=== PATIENT | female | born 1995 | race Caucasian/White ===

== ENCOUNTER 2017-11-02 17:56 | Inpatient (IN) | payer MEDICAID, SELFPAY ==
[2017-11-02 20:17] LABS: HCT 35.4 % (36.0-46.0); HGB 11.9 g/dL (12.0-15.5); Mean Corp. HGB Concentration 33.6 g/dL (32.0-36.0); Mean Corpuscular Hemoglobin 28.1 pg (27.0-33.0); Mean Corpuscular Volume 83.7 fL (80-95); Mean Platelet Volume 11.2 fL (8.0-11.0); Platelet Count 265 x1000/uL (130-400); RBC 4.23 m/cumm (4.00-5.20); RBC Distribution Width 13.5 % (11.7-14.6); White Blood Cell Count 9.88 k/cumm (4.4-10.8)
[2017-11-02] MEDS: Zolpidem 5 MG TAB 10 MG PO (20:57)
[2017-11-03] MEDS: Lactated Ringers 1,000 ML 125 ML IV ×2 (06:08→14:39)
[2017-11-03] MEDS: Lactated Ringers 500 ML IV (22:05)
[2017-11-03] MEDS: Bupivacaine 0.25% Pres-Free 30 ML VIAL (23:26)
[2017-11-04] MEDS: Lactated Ringers 1,000 ML 125 ML IV ×2 (02:35→05:53)
[2017-11-04] MEDS: Sodium Citrate 30 ML CUP PO (06:50)
[2017-11-04] MEDS: AZITHROMYCIN 500 MG in Normal Saline 250 ML 250 MG IVPB (07:10)
[2017-11-04 08:35] VITALS: BP 125/67; PULSE 70; RESP 15; TEMP 36.6; O2SAT 98
[2017-11-04 08:40] VITALS: BP 135/96; PULSE 70; RESP 15; TEMP 36.6; O2SAT 98
[2017-11-04 08:45] VITALS: BP 147/85; PULSE 66; RESP 23; TEMP 36.6; O2SAT 98
[2017-11-04 09:00] VITALS: BP 146/70; PULSE 68; RESP 18; TEMP 36.6; O2SAT 97
[2017-11-04 09:14] VITALS: BP 132/74; PULSE 68; RESP 18; TEMP 36.6; O2SAT 97
[2017-11-04] MEDS: Lactated Ringers 1,000 ML 120 ML IV (09:17)
--- NOTE | 2017-11-04 09:30 | W.PM.OP ---
Date of service: 11/04/17 Operative Note DATE OF PROCEDURE: 11/04/17 PRE-OP DIAGNOSIS: Arrest of Descent Category 2 FHR POST-OP DIAGNOSIS: same SURGEON: Naty Mosley ANESTHESIA: spinal ESTIMATED BLOOD LOSS: 500 PATHOLOGY: none sent COMPLICATIONS: None Patient was transported to: PACU Patient's condition: stable Indications: Arrest of dilation Category 2 FHR not responsive to corrective measures Findings: normal uterus, tubes and ovaries viable male infant 9# 8oz apgars 8,9 Procedure Description: Patient was laboring with family practice. This author was called due to concerns of arrest of descent and category 2 heart rate tracing with late decelerations not responding to corrective measures. It was decided and agreed that the patient should to proceed to primary section for arrested dilatation and category 2 tracing. Risks benefits and alternatives were thoroughly discussed with the patient the informed consent form was reviewed all questions were answered and consent was signed. She was then taken to the operating room where she received spinal anesthesia without difficulty. She was then placed on the operating table in the dorsal supine position with a left lateral tilt. A Corona catheter was placed. A greater than 30 seconds iodine vaginal prep was performed. She was then prepped and draped in the normal sterile sterile fashion. A formal timeout procedure was then performed with all surgical personnel present confirming the patient and procedure. After establishing adequate spinal anesthesia a Pfannenstiel incision was made approximately 2 cm above the symphysis pubis carried down to the underlying fascia. The fascia was nicked in the midline this was extended sharply bilaterally and the inferior aspect of the fascia was grasped bilaterally with Lauren clamps tented up and the rectus muscles dissected off sharply attention was then turned to the superior aspect and again in a similar fashion was grasped bilaterally with Lauren clamps the rectus muscles dissected off sharply the rectus muscles were in the midline the peritoneum was grasped with pickups and entered sharply this was extended superiorly and inferiorly with good visualization of the bladder. The bladder blade was then positioned and the vesicouterine peritoneum was grasped with a pickup tented up and entered sharply and the bladder flap was created both sharply and digitally. The bladder blade was repositioned and the lower uterine segment was transversely incised to the underlying uterine cavity. Clear amniotic fluid was noted and the infant's head was delivered atraumatically without nuchal cords shoulders and body followed with ease. The cord was clamped ?2 cut and the infant handed handed off to the waiting family practitioner Dr. Orantes. Cord blood was then obtained the placenta was manually expressed the uterus was exteriorized and cleared of all clots and debris. The bladder blade was then positioned the uterine cavity was cleared of all clots and debris. The apices and lower uterine incision was tagged with ring forceps and the incision was closed with 0 Vicryl in a running locked fashion. A second imbricating layer of 0 Vicryl was then placed to obtain hemostasis. The incision was inspected found to be hemostatic and the uterus was returned to the abdomen. The gutters were cleared of all clots and debris the uterine incision reinspected and noted to be hemostatic. All the laps were removed from the abdomen. Its suture was cut and the peritoneum was closed with 2-0 Vicryl in a running fashion. The muscle and subfascial layer was inspected and found to be hemostatic. The rectus muscle was reapproximated with 4 interrupted sutures of 0 Vicryl. The fascia was closed from each apices with 0 Vicryl and tied in the middle. The subcuticular layer was copiously irrigated there is no evidence of bleeding in the subcuticular layer was closed with 2 layers of 3 oh plain. And the skin was closed with 4-0 Monocryl on a Quincy needle incision was cleansed and a dressing applied sponge lap needle and small count were correct ?2 and the patient was taken to recovery room in stable condition
[2017-11-04] MEDS: Acetaminophen 325 MG TAB 650 MG PO ×3 (10:45→21:33)
[2017-11-04] MEDS: Ibuprofen 600 MG TAB PO ×3 (10:45→21:34)
[2017-11-04] MEDS: Normal Saline Flush 10 ML SYR IVP (10:46)
[2017-11-04] MEDS: Ondansetron 4 MG/2 ML VIAL IVP (10:46)
[2017-11-04] MEDS: oxyCODONE 5 mg/Acetaminophen 325 mg TAB PO (23:41)
[2017-11-05] MEDS: oxyCODONE 5 mg/Acetaminophen 325 mg TAB PO ×5 (04:22→20:05)
[2017-11-05] MEDS: Ibuprofen 600 MG TAB PO ×4 (04:22→22:16)
[2017-11-05 06:56] LABS: HCT 32.1 % (36.0-46.0); HGB 10.6 g/dL (12.0-15.5); Mean Corpuscular Hemoglobin 28.2 pg (27.0-33.0); Mean Corpuscular Volume 85.4 fL (80-95); Mean Platelet Volume 10.6 fL (8.0-11.0); Platelet Count 204 x1000/uL (130-400); RBC 3.76 m/cumm (4.00-5.20); RBC Distribution Width 13.5 % (11.7-14.6); White Blood Cell Count 11.06 k/cumm (4.4-10.8)
[2017-11-05] MEDS: Docusate Sodium 100 MG CAP PO ×2 (09:38→19:52)
[2017-11-06] MEDS: oxyCODONE 5 mg/Acetaminophen 325 mg TAB PO ×3 (02:15→11:43)
[2017-11-06] MEDS: Ibuprofen 600 MG TAB PO ×2 (04:23→11:43)
[2017-11-06] MEDS: Docusate Sodium 100 MG CAP PO (11:43)
== END 2017-11-06 12:20 | disposition home or self-care (01) | DRG 766 ==
PROVIDERS: Admitting Provider Family Medicine; PCP Family Medicine; Visit Provider Obstetrics & Gynecology
PROC: 10D00Z1 Extraction of Products of Conception, Low, Open Approach (ICD-10-PCS; CPT 59514; principal; 2017-11-04 06:10)
DX: O76 Abnormality in fetal heart rate and rhythm complicating labor and delivery (principal); O62.1 Secondary uterine inertia; Z37.0 Single live birth; O13.4 Gestational [pregnancy-induced] hypertension without significant proteinuria, complicating childbirth; O99.824 Streptococcus B carrier state complicating childbirth; Z3A.40 40 weeks gestation of pregnancy
CPT/HCPCS: 59514; 36415; 85027; 86850; 86900; 86901; 59200; J0456; J0690; J2405; J2540; J2590; J3010; J3490

== ENCOUNTER 2019-01-28 11:00 | Outpatient (REF) | payer MEDICAID, SELFPAY | END 2019-01-28 11:20 | LOC: LBN 11:00 | PROVIDERS: PCP Student in an Organized Health Care Education/Training Program; Visit Provider Advanced Practice Midwife | DX: N23 Unspecified renal colic (principal) | CPT/HCPCS: 87086 ==

== ENCOUNTER 2019-02-01 11:29 | Outpatient (CLI) | payer MEDICAID, SELFPAY ==
[2019-02-01 12:46] LABS: Abs Immature Grans 0.01 k/cumm (0.0-0.09); Absolute Basophil Count 0.02 k/cumm (0.0-0.2); Absolute Lymphocyte Count 2.45 k/cumm (1.2-3.4); Absolute Monocyte Count 0.63 k/cumm (0.11-0.7); Basophils % 0.2; Eosinophils % 1.9; HCT 36.9 % (36.0-46.0); HGB 12.3 g/dL (12.0-15.5); Immature Grans % 0.1; Lymphocytes % 23.3; Mean Corp. HGB Concentration 33.3 g/dL (32.0-36.0); Mean Corpuscular Hemoglobin 26.9 pg (27.0-33.0); Mean Corpuscular Volume 80.7 fL (80-95); Mean Platelet Volume 9.5 fL (8.0-11.0); Neutrophils % 68.5; Platelet Count 412 x1000/uL (130-400); RBC 4.57 m/cumm (4.00-5.20); RBC Distribution Width 13.1 % (11.7-14.6); White Blood Cell Count 10.51 k/cumm (4.4-10.8)
[2019-02-01 13:09] LABS: TSH (W/Ref FT4) 2.16 uIU/mL (0.36-3.74)
[2019-02-02 10:07] LABS: Varicella IgG Antibody Positive (See Note)
[2019-02-02 10:08] LABS: Rubella IgG Ab (UVM) Positive (See Note)
[2019-02-02 10:57] LABS: Hepatitis B Surface Ag Negative (Negative)
[2019-02-02 11:10] LABS: Hepatitis C Ab w Rflx HCV PCR Negative (Negative)
[2019-02-02 11:18] LABS: HIV-1/2 Ag & Ab Screen Negative (Negative)
[2019-02-02 11:55] LABS: Syphilis Total Ab w/Reflex Nonreactive (Nonreactive)
== END 2019-02-01 11:49 ==
PROVIDERS: PCP Student in an Organized Health Care Education/Training Program; Visit Provider Advanced Practice Midwife
DX: Z34.91 Encounter for supervision of normal pregnancy, unspecified, first trimester (principal); Z11.59 Encounter for screening for other viral diseases; Z11.4 Encounter for screening for human immunodeficiency virus [HIV]; Z01.84 Encounter for antibody response examination
CPT/HCPCS: 36415; 80307; 86787; 86803; 86850; 86900; 86901; 87340; 87389; 87491; 87591; 84443; 85025; 86762; 86780; 87086; 87480; 87510; 87660

== ENCOUNTER 2019-02-01 13:05 | Outpatient (REF) | payer MEDICAID, SELFPAY ==
[2019-02-01 14:38] LABS: *AMPHETAMINES SCREEN URINE Negative (Negative); *BARBITURATES SCREEN URINE Negative (Negative); *BENZODIAZEPINES SCREEN URINE Negative (Negative); Cannabinoids THC Negative (Negative); Cocaine Screen,Urine Negative (Negative); METHADONE URINE SCREEN Negative (Negative); OPIATES URINE SCREEN Negative (Negative)
[2019-02-01 14:43] LABS: Tricyclic Antidepressants Negative (Negative)
[2019-02-02 15:06] LABS: Chlamydia Result Negative (Negative); GC Result Negative (Negative)
[2019-02-04 11:34] LABS: Buprenorphine Negative; Norbuprenorphine Negative
== END 2019-02-01 13:25 ==
LOC: LBN 13:05
PROVIDERS: PCP Student in an Organized Health Care Education/Training Program; Visit Provider Advanced Practice Midwife
DX: Z34.91 Encounter for supervision of normal pregnancy, unspecified, first trimester (principal); Z11.3 Encounter for screening for infections with a predominantly sexual mode of transmission
CPT/HCPCS: 80307; 87491; 87591; 87480; 87510; 87660

== ENCOUNTER 2019-02-04 01:19 | Outpatient (CLI) | payer MEDICAID, SELFPAY ==
[2019-02-04 10:08] LABS: Glucose,1 Hr (Glucola) 111 mg/dL (80-140)
== END 2019-02-04 01:39 ==
PROVIDERS: PCP Student in an Organized Health Care Education/Training Program; Visit Provider Advanced Practice Midwife
DX: Z34.91 Encounter for supervision of normal pregnancy, unspecified, first trimester (principal)
CPT/HCPCS: 36415; 82950

== ENCOUNTER 2019-03-31 00:58 | Outpatient (CLI) | payer MEDICAID, SELFPAY ==
--- NOTE | 2019-03-31 09:42 | DI.US_ITS ---
EXAM: US OB 2-3 TRIMESTER CLINICAL HISTORY: [facility] Z34.90 SUPERVISION NORMAL TECHNIQUE: Ultrasound performed using standard protocol. COMPARISON: No exams were available for comparison FINDINGS: The exam is limited by patient body habitus. Fetus is in cephalic position. The placenta is poste rior. The biometric measurements correspond to 19 weeks 4 days. The face and placental cord i nsertion as well as right ventricular outflow tract were not seen. Patient is scheduled to return 06 April 2019 additional imaging. IMPRESSION: survey is within normal limits. Patient is scheduled to return 06 April 2019 additional im aging.
== END 2019-03-31 01:18 ==
PROVIDERS: PCP Student in an Organized Health Care Education/Training Program; Visit Provider Advanced Practice Midwife
DX: Z34.92 Encounter for supervision of normal pregnancy, unspecified, second trimester (principal); Z3A.19 19 weeks gestation of pregnancy
CPT/HCPCS: 76805

== ENCOUNTER 2019-04-06 01:51 | Outpatient (CLI) | payer MEDICAID, SELFPAY ==
--- NOTE | 2019-04-06 | DI.US_ITS ---
EXAM: US OB F/U FACIAL/LVOT/RVOT CLINICAL HISTORY: F/U NOSE, LIPS, CORD INSERT, OUTFLOW TRACKS TECHNIQUE: Ultrasound performed using standard protocol. COMPARISON: US OB 2-3 TRIMESTER W MOD from 03/31/2019 FINDINGS: There is a single living intrauterine gestation. Both of the cardiac outflow tracts were visualized and are unremarkable. The nose and lips are unremarkable. The cord insertion site is unremarkable. The placenta is posterior.
== END 2019-04-06 02:11 ==
PROVIDERS: PCP Student in an Organized Health Care Education/Training Program; Visit Provider Advanced Practice Midwife
DX: Z34.92 Encounter for supervision of normal pregnancy, unspecified, second trimester (principal); Z36.2 Encounter for other antenatal screening follow-up
CPT/HCPCS: 76815

== ENCOUNTER 2019-06-03 01:42 | Outpatient (CLI) | payer MEDICAID, SELFPAY ==
[2019-06-03 09:53] LABS: Glucose,1 Hr (Glucola) 143 mg/dL (80-140)
[2019-06-03 10:03] LABS: Mean Corp. HGB Concentration 33.3 g/dL (32.0-36.0); Mean Corpuscular Hemoglobin 27.4 pg (27.0-33.0); Mean Corpuscular Volume 82.2 fL (80-95); Mean Platelet Volume 9.7 fL (8.0-11.0); Platelet Count 337 x1000/uL (130-400); RBC 4.38 m/cumm (4.00-5.20); RBC Distribution Width 13.9 % (11.7-14.6); White Blood Cell Count 8.19 k/cumm (4.4-10.8)
== END 2019-06-03 02:02 ==
LOC: LBO 09:23 → LBN 06-04 07:43 → LBO 06-04 07:44
PROVIDERS: Advanced Practice Midwife; PCP Student in an Organized Health Care Education/Training Program; Visit Provider Advanced Practice Midwife
DX: Z34.92 Encounter for supervision of normal pregnancy, unspecified, second trimester (principal)
CPT/HCPCS: 36415; 82950; 85027

== ENCOUNTER 2019-06-04 07:16 | Outpatient (CLI) | payer MEDICAID, SELFPAY ==
[2019-06-04 09:14] LABS: Glucose 1 Hour 168 mg/dL
[2019-06-04 11:22] LABS: Glucose 3 Hour 113 mg/dL
== END 2019-06-04 07:36 ==
PROVIDERS: PCP Student in an Organized Health Care Education/Training Program; Visit Provider Advanced Practice Midwife
DX: Z34.92 Encounter for supervision of normal pregnancy, unspecified, second trimester (principal)
CPT/HCPCS: 82951

== ENCOUNTER 2019-07-30 02:07 | Outpatient (CLI) | payer MEDICAID, SELFPAY ==
--- NOTE | 2019-07-30 07:00 | DI.US_ITS ---
EXAM: US OB JAMIN WEIGHT CLINICAL HISTORY: size greater than dates,O26.843. TECHNIQUE: Transabdominal obstetrical ultrasound performed. COMPARISON: US US OB F/U FACIAL/LVOT/RVOT from 04/06/2019 FINDINGS: There is a single living intrauterine gestation in the cephalic presentation. The estimated gestatio nal age is 38 weeks. heart rate is 150 beats per minute. A complete anatomic evaluation was n ot performed at this exam. Amniotic fluid index is 15.6 cm. Visually, the amniotic fluid appears wi thin normal limits. The placenta is posterior. IMPRESSION: 1. Single live intrauterine gestation as above. DATA REPOSITORY:
== END 2019-07-30 02:27 ==
PROVIDERS: PCP Student in an Organized Health Care Education/Training Program; Visit Provider Advanced Practice Midwife
DX: O26.843 Uterine size-date discrepancy, third trimester (principal); Z3A.38 38 weeks gestation of pregnancy
CPT/HCPCS: 76816

== ENCOUNTER 2019-07-30 12:47 | Outpatient (REF) | payer MEDICAID, SELFPAY ==
[2019-07-30 15:58] LABS: Tricyclic Antidepressants Negative (Negative)
[2019-07-30 16:04] LABS: *AMPHETAMINES SCREEN URINE Negative (Negative); *BARBITURATES SCREEN URINE Negative (Negative); *BENZODIAZEPINES SCREEN URINE Negative (Negative); Cannabinoids THC Negative (Negative); Cocaine Screen,Urine Negative (Negative); METHADONE URINE SCREEN Negative (Negative); OPIATES URINE SCREEN Negative (Negative)
[2019-08-05 08:17] LABS: Buprenorphine Negative
--- NOTE | 2019-08-10 10:01 | ANES_ITS ---
Date of service: 08/10/19 Time of Service: 10:01 Anesthesia Note Report Anesthesia Note: Saw Sherie at the request of OB to assess TOLAC candidacy. From an anesthesia perspective, we were involved in her first c- section in 2018 with no concerns under spinal anesthesia. She shared that she does have mild spinal stenosis and would like to TOLAC if possible. IV Access looks reasonable and she states this has generally not been an issue. Her back as well as prior spinal makes her a reasonable candidate for repeat section if needed by either spinal or GETA.
== END 2019-07-30 13:07 ==
LOC: LBN 12:47
PROVIDERS: PCP Student in an Organized Health Care Education/Training Program; Visit Provider Advanced Practice Midwife
DX: Z34.93 Encounter for supervision of normal pregnancy, unspecified, third trimester (principal); Z36.85 Encounter for antenatal screening for Streptococcus B
CPT/HCPCS: 80307; 87081

== ENCOUNTER 2019-08-17 21:20 | Inpatient (IN) | payer MEDICAID, SELFPAY ==
[2019-08-17 22:31] LABS: ROM Plus Positive
[2019-08-17] MEDS: Terbutaline 1 MG/ML VIAL ×2 (23:09→23:42)
[2019-08-17 23:10] LABS: HCT 36.6 % (36.0-46.0); Mean Corp. HGB Concentration 32.8 g/dL (32.0-36.0); Mean Corpuscular Volume 82.2 fL (80-95); Mean Platelet Volume 10.9 fL (8.0-11.0); Platelet Count 293 x1000/uL (130-400); RBC 4.45 m/cumm (4.00-5.20); White Blood Cell Count 10.57 k/cumm (4.4-10.8)
[2019-08-17] MEDS: AZITHROMYCIN 500 MG in Normal Saline 250 ML 250 MG IVPB (23:10)
[2019-08-17] MEDS: Sodium Citrate 30 ML CUP (23:10)
--- NOTE | 2019-08-17 23:16 | W.PM.PROGNOT ---
Date of Service Date of service: 08/17/19 Time of Service: 23:16 Assessment and Plan Assessment and plan (1) : Status: Acute (2) Previous section: Status: Chronic (3) macrosomia: Status: Acute (4) Morbid obesity: Status: Acute Assessment and plan: I had a lengthy discussion with the patient regarding her election to attempt a trial of labor. Based on the constellation of factors including body habitus, macrosomia and reason for prior section she is a poor candidate for a . In addition, non-engagement and inability to adequately perform monitoring during labor also make a trial of labor problematic. My recommendation is to proceed with repeat section. The patient acknowledged understanding and elects to proceed. Risks of surgery including hemorrhage, infection and injury to other organs such as bowel and bladder were reviewed with the patient. All questions were answered to the patient's satisfaction and consent for surgery was obtained. Subjective Subjective Interval history since last seen: I presented to the bedside to evaluate the patient at the request of Meryl Mims CNM. The patient presented with SROM and early labor. She has a history of a prior section for FTP @ 7 cm with a 9 lbs fetus. This is complicated by morbid obesity, macrosomia and prior section. On Meryl Hernandez evaluation she was unable to palpate a presenting part in the pelvis and cervix was 2 cm in dilatation. Per her report she did perform an ultrasound for presentation and felt that the fetus was in occiput posterior position. monitoring has been difficult due to maternal body habitus and because presenting part was not in the pelvis, there is no ability to place a scalp electrode. Objective Objective Clinical Data: Laboratory Results Membranes Rupture Positive 08/17/19 22:20
[2019-08-18] MEDS: ceFAZolin 3,000 MG in Normal Saline 100 ML 200 MG IVPB (00:37)
[2019-08-18] MEDS: Bupivacaine 0.25% Pres-Free 30 ML VIAL (01:42)
[2019-08-18 02:05] VITALS: BP 136/76; PULSE 97; O2SAT 100
[2019-08-18 02:10] VITALS: BP 111/69; PULSE 103; O2SAT 100
[2019-08-18 02:15] VITALS: BP 113/77; PULSE 99; O2SAT 100
[2019-08-18] MEDS: HYDROmorphone 2 MG/ML VIAL IVP ×2 (03:10→04:32)
[2019-08-18] MEDS: Normal Saline Flush 10 ML SYR IVP (03:15)
[2019-08-18] MEDS: oxyCODONE 5 mg/Acetaminophen 325 mg TAB PO ×4 (07:30→20:33)
[2019-08-18 07:40] LABS: HCT 29.1 % (36.0-46.0); HGB 9.3 g/dL (12.0-15.5); Mean Corpuscular Hemoglobin 26.9 pg (27.0-33.0); Mean Corpuscular Volume 84.1 fL (80-95); Platelet Count 277 x1000/uL (130-400); RBC 3.46 m/cumm (4.00-5.20); RBC Distribution Width 13.8 % (11.7-14.6)
--- NOTE | 2019-08-18 10:20 | ROE_ITS ---
Date of service: 08/18/19 Time of Service: 10:21 Operative Note Operative Note DATE OF PROCEDURE: 08/18/19 PRE-OP DIAGNOSIS: 39 weeks. Active labor with SROM. Prior section. macrosomia. Unengaged vertex. POST-OP DIAGNOSIS: same PROCEDURE: Repeat low transverse section SURGEON: Rajiv Merino ASSISTING SURGEON: Héctor Steve ACCOUNT LIAISON: Meryl Mims ANESTHESIA: GETA and spinal ESTIMATED BLOOD LOSS: 1,200 PATHOLOGY: none sent COMPLICATIONS: None Patient was transported to: floor Patient's condition: stable Findings: 1. Delivered LBM 9 lbs 10 oz with 8,9 Procedure Description: The patient was taken to the operating room and an attempted spinal anesthesia was made but a block could not be achieved. Anesthesia was converted to a general endotracheal. The patient had been prepped and draped your sterile manner and Corona catheter had been placed in the bladder prior to the administration of anesthesia. A Pfannenstiel incision was made with a #10 scalpel. Sharp dissection was carried down to the underlying layer of fascia. The fascia was incised in the midline with a scalpel and the incision was carried laterally in either direction with blunt digital dissection. The superior and inferior aspects of the fascial incision were divided off the rectus muscles using blunt and sharp dissection. The rectus muscles were divided along the linea alba and the peritoneum was entered bluntly with digital dissection. The incision was extended via stretch. The Matthew retractor was placed with good visualization of the lower uterine segment. There were bladder adhesions fairly high on the uterus were taken down with blunt and sharp dissection. The bladder flap was then developed digitally. The lower uterine segment was incised and transfer made with a scalpel and the infant was found in cephalic presentation. was delivered atraumatically. Mouth and nose were suctioned. The cord was clamped and cut and the was handed off to the awaiting color room attendant. The placenta was manually extracted and the uterus was cleared of all clots and debris. The hysterotomy was closed with a running locked stitch of #1 chromic. A second imbricating layer of #1 chromic in a Lambert stitch was used to complete the repair. 2 tlnute-fr-elhmd sutures of #1 chromic were used along the right side to obtain hemostasis. The bladder flap was reapproximated with a running stitch of 3-0 Vicryl. The gutters were cleared of clots and debris. The peritoneum was closed with a running stitch of 2-0 Vicryl. Subfascial space was thoroughly inspected and limited use of the Bovie cautery was used to obtain hemostasis. The fascia was closed with a running stitch of 0 Vicryl. The subcutaneous tissues were closed with 2 layers of 3-0 Vicryl. Running subcuticular stitch of 4-0 Monocryl and Dermabond was applied. The procedure wa s concluded at this point. Sponge, lap and needle counts were correct at the conclusion of the procedure. The patient tolerated the procedure well and was transferred to the floor in stable condition.
[2019-08-18] MEDS: Ibuprofen 600 MG TAB PO (12:48)
[2019-08-18 12:56] LABS: COVID-19 RT-PCR UVMMC Result Negative (Negative)
--- NOTE | 2019-08-18 14:31 | W.PM.PROGNOT ---
Date of Service Date of service: 08/18/19 Time of Service: 14:31 Assessment and Plan Assessment and plan (1) S/P section: Status: Acute Assessment and plan: POD1 s/p RLTCS. Continue routine postop care. Encourage ambulation. Subjective Subjective Interval history since last seen: Doing well. Pain well controlled. Ambulatory Tolerating regular diet Minimal lochia. Objective Objective Clinical Data: Abnormal lab results 08/17/19 08/18/19 Range/Units 23:00 07:00 WBC 14.40 H D (4.4-10.8) k/cumm RBC 3.46 L (4.00-5.20) m/cumm Hgb 9.3 L D (12.0-15.5) g/dL Hct 29.1 L D (36.0-46.0) % MCH 26.9 L (27.0-33.0) pg Crossmatch See Detail Vital Signs Pulse 99 H 08/18/19 02:15 Blood Pressure 113/77 08/18/19 02:15 Pulse Oximetry 100 08/18/19 02:15 Oxygen Delivery Method Room Air 08/18/19 02:15 Oxygen Flow Rate 10 08/18/19 02:10 Pain Level 4 08/18/19 12:48 Intake & Output 08/17/19 08/18/19 08/18/19 23:59 11:59 23:59 Intake Total 100 / 350 250 / 350 Output Total 1300 / 1300 Balance -1200 / -950 250 / -950 Intake: IV 100 / 350 250 / 350 Output: Urine 100 / 100 Estimated Blood Loss 1200 / 1200 Other: Urine Color Yellow Urine Appearance Clear Emesis Description None Laboratory Results WBC 14.40 k/cumm (4.4-10.8) H D 08/18/19 07:00 RBC 3.46 m/cumm (4.00-5.20) L 08/18/19 07:00 Hgb 9.3 g/dL (12.0-15.5) L D 08/18/19 07:00 Hct 29.1 % (36.0-46.0) L D 08/18/19 07:00 MCV 84.1 fL (80-95) 08/18/19 07:00 MCH 26.9 pg (27.0-33.0) L 08/18/19 07:00 MCHC 32.0 g/dL (32.0-36.0) 08/18/19 07:00 RDW 13.8 % (11.7-14.6) 08/18/19 07:00 Plt Count 277 x1000/uL (130-400) 08/18/19 07:00 MPV 11.0 fL (8.0-11.0) 08/18/19 07:00 Membranes Rupture Positive 08/17/19 22:20 COVID-19 PCR Negative (Negative) 08/17/19 22:33 Nasopharyn COVID-19 PCR Not Applicable 08/17/19 22:33 Ref Test Perform Site [facility] lab 08/17/19 22:33 Patient ABO/Rh O Positive 08/17/19 23:00 Antibody Screen Negative 08/17/19 23:00 Crossmatch See Detail 08/17/19 23:00
[2019-08-19] MEDS: oxyCODONE 5 mg/Acetaminophen 325 mg TAB PO ×5 (03:07→20:20)
[2019-08-19] MEDS: Ibuprofen 600 MG TAB PO ×2 (12:17→18:08)
[2019-08-20] MEDS: Ibuprofen 600 MG TAB PO ×2 (00:18→09:07)
[2019-08-20] MEDS: oxyCODONE 5 mg/Acetaminophen 325 mg TAB PO ×4 (00:20→13:07)
--- NOTE | 2019-08-20 08:59 | W.PM.DS.N ---
Date of service: 08/20/19 Time of Service: 08:59 DS: Diagnosis Discharge Diagnosis (1) S/P section: Status: Acute Discharge Plan Disposition Patient Disposition: HOME Condition: Good Discharge Details Reason For Visit: SROM TERM LABOR Admit Date/Time: 08/17/19 21:20 Admit Provider: Meryl Mims Attending Provider: Meryl Mims Primary Care Provider: Rhoda Hidalgo Hospital Course Hospital Course: Patient is a 24-year-old G2 now P2 female who presented at 39 weeks EGA with SROM and early labor planning on a trial of labor. She had a history of a prior section for FTP @ 7 cm with a 9 lbs fetus. During this she was counseled that she was a candidate for a trial of labor but because of the patient's morbid obesity, probable macrosomia, and indications for prior delivery she was given a less than 50% chance of a successful trial of labor. On presentation CNM was unable to palpate a presenting part in the pelvis, and cervix was 2 cm in dilatation. A bedside ultrasound confirmed that the fetus was vertex in the occiput posterior position. The patient was counseled regarding options for trial of labor versus a repeat delivery, which she accepted. She underwent a repeat low transverse delivery without complications on 08/18/2019. Viable male infant named Ezio weighing 9 pounds 10 ounces. She and were discharged home on day 2 successfully breast-feeding. Pt was taking ibuprofen and Percocet for pain. Home Meds and New Rx's Prescriptions: No Action Vitamin 27 mg iron- 800 mcg tablet 1 tab PO DAILY RF: 0 ascorbate calcium (vitamin C) 500 mg tablet 500 mg PO DAILY RF: 0 oxycodone-acetaminophen [Endocet] 5-325 mg tablet 1 tab PO Q6H MDD 4 PRN (Reason: pain) Qty: 30 RF: 0 ibuprofen 600 mg tablet 600 mg PO Q6H PRN (Reason: pain) Qty: 60 RF: 1 norethindrone (contraceptive) [Parris] 0.35 mg tablet 0.35 mg PO DAILY Qty: 84 RF: 11 fluconazole [Diflucan] 150 mg tablet 150 mg PO DAILY Qty: 1 RF: 1 Discharge Instructions Additional Instructions: You have a prescription for Percocet 5/325 take 1 tablet every 6 hours as needed for pain for a maximum of 4 tablets/day. In addition to the Percocet there is a prescription waiting for you at your pharmacy for ibuprofen 600 mg every 6 hours as needed for pain. You may take that along with the Percocet. Careful to avoid constipation while taking the Percocet. Call the office on Friday to make an appointment with Dr. Merino in follow-up for 08/26/2019. Stand Alone Forms: BC Instructions, BC Discharge Instruc Activity:: No lifting over 10 pounds, no driving Equipment/Supplies:: No Equipment Needed Diet:: As Tolerated Discharge Orders Discharge Orders: Discharge Order (Routine); Ordered 08/20/19 Ordered By: Amanda Kumar Discharge Data Discharge Date/Time-TO BE ENTERED AT DEPARTURE: 08/20/19 14:05 DS: Summary Status at Discharge Functional status at discharge: independent ambulation Overall status at discharge: patient is progressing back to baseline Mental Status: mental status grossly normal Speech and Movement: speech and movement normal and mute Mood: congruent mood Affect: normal affect Exam Psych Mental Status: mental status grossly normal Speech and Movement: speech and movement normal and mute Mood: congruent mood Affect: normal affect DS: Data Vitals/I&O Vitals and I&O: Vital Signs Pulse 99 H 08/18/19 02:15 Blood Pressure 113/77 08/18/19 02:15 Pulse Oximetry 100 08/18/19 02:15 Oxygen Delivery Method Room Air 08/18/19 02:15 Oxygen Flow Rate 10 08/18/19 02:10 Pain Level 3 08/20/19 05:23 PFS Medical History (Updated 09/28/19 @ 09:17 by Paloma Short CNM) Anxiety (Chronic) Gluten intolerance (Acute) Lumbago with sciatica (Acute) Bilateral Other intervertebral disc displacement, lumbar region (Acute) Ctl disc protrusion @ L5, S1 per MRI Sep 2017 ([facility]). Pain/numbness. Positive test (Acute) (Acute) Surgical History (Updated 08/20/19 @ 09:06 by Amanda Kumar MD) Previous section (Chronic) 11/04/2017. I OL for back pain at 40W EGA. LTCS arrest of dilation. M. 2gob0oc. Pradeep 08/18/2019 attempted .39 weeks. Active labor with SROM. Prior section. macrosomia. Unengaged vertex. M. 9lbs 10oz. Ezio Family History Mother No problems noted. Father Temporal lobe epilepsy Possible Sister Celiac disease Social History (Updated 02/01/19 @ 10:31 by Penny Wiley CNM) Smoking/Tobacco Use Status: Former Tobacco Use Quit Date: 02/17/15 Tobacco: How many years used: 1 Alcohol Intake: former Details: stopped w/ knowledge of . Drug use: Never Substance use type: does not use Details: No IV Drug Use Adopted: No Caregiver/Support person: Yes (Employed As.) Foster care: No Household members: spouse and children Number of Children: 1 Do you need help understanding health information?: Rarely current occupation: [employer] Worker Sexually active: Yes Do you think of yourself as: straight/heterosexual Current gender identity: female What is your relationship status?: Panel score (0-1 are the most socially isolated patients): 1 What type of physical activity do you participate in: walking and other Details: yoga daily Duration: 15-30 minutes/day Frequency: daily Seatbelt use: always Do you feel safe at home: Yes Do you feel safe in your relationship?: Yes History History 2 Para 2 Hx # Term Pregnancies 2 Multiple births 0 Hx # Pregnancies 0 Ectopic pregnancies 0 AB induced 0 Hx Number of Living Children 2 AB spontaneous 0 Past Pregnancies Del. Date GA/Weeks # Outcome Route Wgt Sex Labor Lgth Anesthesia Location Prov Complic Unknown 11/04/17 40 No Successful 9 lb 7 oz Male [facility] 08/18/19 38 No Successful 9 lb 10 oz Male Opal Kiser Delivery Date: Spontaneous ROM; Failed ; repeat Maritza Campos Delivery Date: 11/04/17 IOL for back pain, herniated disc. Corona induction, Pitocin, 3 day induction. for FTP. Dilated to 7- 8 cms, FHR decellerations. Paloma López Delivery Date: 08/18/19 No notes to display
[2019-08-20] MEDS: Bisacodyl 5 MG TABEC PO (09:22)
== END 2019-08-20 14:05 | disposition home or self-care (01) | DRG 788 ==
PROVIDERS: Obstetrics & Gynecology; Admitting Provider Advanced Practice Midwife; PCP Student in an Organized Health Care Education/Training Program; Visit Provider Advanced Practice Midwife
PROC: (CPT 59514; principal; 2019-08-17 23:50)
DX: O64.8XX0 Obstructed labor due to other malposition and malpresentation, not applicable or unspecified (principal); O66.41 Failed attempted vaginal birth after previous cesarean delivery; Z37.0 Single live birth; O66.2 Obstructed labor due to unusually large fetus; O34.211 Maternal care for low transverse scar from previous cesarean delivery; T88.59XA Other complications of anesthesia, initial encounter; O99.214 Obesity complicating childbirth; Z3A.39 39 weeks gestation of pregnancy; E66.01 Morbid (severe) obesity due to excess calories; O42.02 Full-term premature rupture of membranes, onset of labor within 24 hours of rupture; Z03.818 Encounter for observation for suspected exposure to other biological agents ruled out
CPT/HCPCS: 59514; 36415; 84112; 85027; 86850; 86900; 86901; 86920; 99233; NC; U0003; J0456; J0690; J1885; J2001; J2405; J2704; J3010

== ENCOUNTER 2019-09-28 11:42 | Outpatient (REF) | payer MEDICAID, SELFPAY ==
--- NOTE | 2019-09-28 09:00 | PAPFT_PTH ---
PATIENT: Sherie Larios LOC: [facility] U#:[id number] AGE/SX: 24/F ROOM: RE09/28/[address]: Paloma Short : 1995 BED: DIS: 09/28/2019 SPEC #: [id number] RECD: 09/28/19 13:01 STATUS: BRIAN REJoey #: [id number] BOBBI: 09/28/19 09:[address]: Paloma Short [facility] Cytology RECD BY: Marlys Zuniga ENTERED: 09/28/19 13:02 SP TYPE: PAPFT OTHR DR: Rhoda Hidalgo DO Tissues: 1 - CX/ENDOCX FOR PAP SMEARS Procedures: PAP THIN PREP/[facility] Screening Comments: [id number]
== END 2019-09-28 12:02 ==
LOC: LBN 11:42
PROVIDERS: PCP Student in an Organized Health Care Education/Training Program; Visit Provider Advanced Practice Midwife
DX: Z12.4 Encounter for screening for malignant neoplasm of cervix (principal)
CPT/HCPCS: 88142

== ENCOUNTER 2019-12-03 11:49 | Outpatient (REF) | payer MEDICAID, SELFPAY | END 2019-12-03 12:09 | LOC: LBN 11:49 | PROVIDERS: PCP Student in an Organized Health Care Education/Training Program; Visit Provider Advanced Practice Midwife | DX: N89.8 Other specified noninflammatory disorders of vagina (principal) | CPT/HCPCS: 87480; 87510; 87660 ==

== ENCOUNTER 2020-07-18 21:16 | Emergency (ER) | payer MEDICAID, SELFPAY ==
[2020-07-18 21:19] VITALS: BP 135/79; PULSE 110; RESP 20; TEMP 35.5; O2SAT 100
--- NOTE | 2020-07-18 21:41 | ED.GENADUL_ITS ---
Discharge Plan Disposition Patient Disposition: HOME Condition: Stable Discharge Details Clinical Impression: Vaginal bleeding Primary Care Provider: Rhoda Hidalgo ED Provider: Ezio Maurer Home Meds and New Rx's Prescriptions: Continued albuterol sulfate 90 mcg/actuation aerosol powdr breath activated 1 - 2 inh inhalation Q4H PRN (Reason: shortness of breath or wheezing) Qty: 1 RF: 0 Digestive Probiotic 3 billion cell capsule PO RF: 0 polyethylene glycol 3350 [Miralax] 17 gram/dose powder 17 g PO HS RF: 0 norethindrone (contraceptive) [Parris] 0.35 mg tablet 0.35 mg PO DAILY Qty: 84 RF: 1 Discharge Instructions Additional Instructions: I discussed your case with Dr. Kumar this evening. She is planning to see you in the office tomorrow morning and stated that office staff will phone you. The office number is [phone]. Dr. Kumar asked that you double your Alida oral contraceptive taking additional dose this evening and 2 doses tomorrow morning. She also asked that you take ibuprofen 600 mg every 6 hours for its antiprostaglandin effect which can slow menstrual bleeding. Return to the ER for any acute concerns in the interim. Medical Decision Making 25-year-old female presents from home with persistent menses since the end of May. She has an IUD, has been seen in [facility] and recently placed on oral contraceptive. States that she has had increasing vaginal bleeding over the past 5 days up to 7 super tampons and approximately 1 cup menstrual cup bleed captured. She arrives here with triage heart rate of 110, improved by the time of my exam as she is lying in the gurney. Her lower abdomen is slightly tender without rebound or guarding. On pelvic exam there is pooling of blood in the vaginal vault refills with swabbing. No mass or focal tenderness appreciated. Patient's white blood cell count is 12, hematocrit 38, platelets 413. Chemistries reassuring. Screening XR obtained Discussed with Dr. Kumar. Patient is stable, will benefit from urgent evaluation tomorrow in [facility]. We will have her double her current oral contraceptive and she may take ibuprofen 600 mg every 6 hours for its antiprostaglandin effect. HPI General Mode of arrival: ambulatory . Date/Time Provider Initiated Documentation: 07/18/20 21:21 . Limitations to Documentation: no limitations . Information obtained by: patient . History of Present Illness 25 year old F presents to the emergency department with the chief complaint of Persistent large volume vaginal bleeding, described as moderate, Quality is described as dull, and is localized to the abdomen and pelvis. Patient reports no radiation. Patient started experiencing this day(s) and it has been intermittent. No relieving factors improve symptom(s), Other factors that worsen symptoms (Worse with mild exertion or lifting child) . Patient notes weakness; denies chest pain, nausea/vomiting, shortness of breath and syncope. Patient did receive the following treatments prior to arrival, other (Taking oral contraceptive.) Related Data Home Medications Medication Instructions Recorded Confirmed L.acidophilus,gasseri,rhamnosus-B.bifidum,long cap PO 12/03/19 04/19/20 3 billion cell capsule albuterol sulfate 90 mcg/actuation 1 - 2 inh INHALATION Q4H PRN #1 ea 03/06/20 07/18/20 breath activated powder inhaler polyethylene glycol 3350 17 17 g PO HS g 05/17/20 gram/dose oral powder norethindrone (contraceptive) 0.35 0.35 mg PO DAILY #84 tab 07/03/20 mg tablet Previous Rx's Medication Instructions Recorded albuterol sulfate 90 mcg/actuation 1 - 2 inh INHALATION Q4H PRN #1 ea 03/06/20 breath activated powder inhaler norethindrone (contraceptive) 0.35 0.35 mg PO DAILY #84 tab 07/03/20 mg tablet Allergies Allergy/AdvReac Type Severity Reaction Status Date / Time procaine [From Novocain] Allergy Severe Verified 07/18/20 21:23 hydrocortisone Allergy Intermediate hives Verified 07/18/20 21:23 nifedipine Allergy Swelling Verified 07/18/20 21:23 zonisamide [From Zonegran] AdvReac rash Verified 07/18/20 21:23 General Stated Complaint: [facility] JUVENCIO: 3 Review of Systems Narrative: 6 systems reviewed and otherwise negative. No syncope. Feels weak and lightheaded. PFSH Medical History Anxiety Food sensitivity with gastrointestinal symptoms Mo has eosino esophagitis. Fragrance hypersensitivity Asthmatic or allergic reaction Gluten intolerance Lumbago with sciatica Bilateral Other intervertebral disc displacement, lumbar region Ctl disc protrusion @ L5, S1 per MRI Sep 2017 ([facility]). Pain/numbness. Positive test Presence of IUD Surgical History (Updated 08/20/19 @ 09:06 by Amanda Kumar MD) Previous section 11/04/2017. I OL for back pain at 40W EGA. LTCS arrest of dilation. M. [id number]. Pradeep 08/18/2019 attempted .39 weeks. Active labor with SROM. Prior section. macrosomia. Unengaged vertex. M. 9lbs 10oz. Ezio Family History Mother No problems noted. Father Temporal lobe epilepsy Possible Sister Celiac disease Social History Smoking/Tobacco Use Status: Former Tobacco Use Quit Date: 02/17/15 Tobacco: How many years used: 1 Smoking risk assessment performed?: Yes Alcohol Intake: former Details: stopped w/ knowledge of . Drug use: Never Substance use type: does not use Details: No IV Drug Use Adopted: No Caregiver/Support person: Yes (Employed As.) Foster care: No Household members: spouse and children Number of Children: 1 Do you need help understanding health information?: Rarely current occupation: [employer] Work[employer] Sexually active: Yes Do you think of yourself as: straight/heterosexual Current gender identity: female What is your relationship status?: Panel score (0-1 are the most socially isolated patients): 1 What type of physical activity do you participate in: walking and other Details: yoga daily Duration: 15-30 minutes/day Frequency: daily Seatbelt use: always Do you feel safe at home: Yes Do you feel safe in your relationship?: Yes History History 2 Para 2 Hx # Term Pregnancies 2 Multiple births 0 Hx # Pregnancies 0 Ectopic pregnancies 0 AB induced 0 Hx Number of Living Children 2 AB spontaneous 0 Past Pregnancies Del. Date GA/Weeks # Outcome Route Wgt Sex Labor Lgth Anesthes ia Location Prov Complic Unknown 11/04/17 40 No Successful 4280.778 g Male [facility] 08/18/19 38 No Successful 4365.827 g Male Opal Kiser Delivery Date: Spontaneous ROM; Failed ; repeat [place] Delivery Date: 11/04/17 IOL for back pain, herniated disc. Corona induction, Pitocin, 3 day induction. for FTP. Dilated to 7- 8 cms, FHR decellerations. Paloma López Delivery Date: 08/18/19 No notes to display Exam Narrative Exam Narrative: GEN: awake, alert, oriented 3. Pleasant, well groomed, interactive. HEAD: Normocephalic, atraumatic ENT: Mucous membranes moist, oropharynx unremarkable, External ear exam unremarkable EYES: PERRL, EOMI NECK: Full ROM, no DESIREE, no menigismus CHEST/RESP: Nontender, clear to auscultation bilateral, no wheeze/rhonchi/rales CARDIOVASCULAR: RRR, no murmur, rub javier. 2+ Rad pulse bilateral ABDOMEN: Soft, lower abdominal tenderness, no rebound, no mass. +Bowel sounds DINING ROOM HOST/HOSTESS: dark blood pooling posterior vaginal vault, no adnexal mass or tendnerness EXT: Full ROM, no edema, no rash Neuro: Grossly normal neurologic exam, conversant, interactive. Psych: Speech fluent, thoughts congruent, affect normal Course Vital Signs Vital signs: Vital Signs Temperature 35.5 C L 07/18/20 21:19 Pulse 110 H 07/18/20 21:19 Respiratory Rate 20 07/18/20 21:19 Blood Pressure 135/79 07/18/20 21:19 Pulse Oximetry 100 07/18/20 21:19 Temperature 35.5 C L 07/18/20 21:19 Temperature Source Temporal Artery Scan 07/18/20 21:19 Pulse 110 H 07/18/20 21:19 Respiratory Rate 20 07/18/20 21:19 Respiratory Effort Non-Labored 07/18/20 21:25 Blood Pressure 135/79 07/18/20 21:19 Blood Pressure Position Sitting 07/18/20 21:19 Pulse Oximetry 100 07/18/20 21:19 Oxygen Delivery Method Room Air 07/18/20 21:19 Oxygen Flow Rate 0 07/18/20 21:19 Pain Level 7 07/18/20 21:25
--- NOTE | 2020-07-18 21:45 | DI.RAD_ITS ---
Exam(s) XR PELVIS AP EXAM: XR PELVIS AP CLINICAL HISTORY: lower abdomen crmps, IUD. TECHNIQUE: 2D digital imaging was performed. COMPARISON: No exams were available for comparison FINDINGS: BONES: No acute fracture is present. No bony destructive lesion is seen. JOINTS: No dislocation present. No joint space narrowing is present. SOFT TISSUE: Normal. There is an IUD in the pelvis. IMPRESSION: 1. Unremarkable radiographs of the pelvis. 2. IUD appears appropriately placed. DATA REPOSITORY: RADIATION DOSE DELIVERED:
[2020-07-18 21:55] LABS: Abs Immature Grans 0.04 10^3/uL (0.0-0.06); Absolute Basophil Count 0.05 10^3/uL (0.0-0.2); Absolute Eosinophil Count 0.32 10^3/uL (0.0-0.7); Absolute Lymphocyte Count 3.42 10^3/uL (1.2-3.4); Absolute Monocyte Count 0.66 10^3/uL (0.1-0.8); Basophils % 0.4; Eosinophils % 2.6; HCT 38.3 % (36.0-46.0); HGB 12.5 g/dL (11.2-15.7); Immature Grans % 0.3; Lymphocytes % 27.9; MCH 26.2 pg (27.0-33.0); MCHC 32.6 % (32.0-36.0); MCV 80.3 fL (80-95); MPV 9.5 fL (8.0-11.0); Monocytes % 5.4; Neutrophils % 63.4; Nucleated RBC 0 %; Platelet Count 413 10^3/uL (130-400); RBC 4.77 10^6/uL (3.93-5.22); RDW 13.7 % (11.7-14.6); RDW-SD 39.8 fL; WBC 12.25 10^3/uL (4.4-10.8)
[2020-07-18 21:56] LABS: Absolute Neutrophil Count 7.77 10^3/uL (1.2-6.7)
[2020-07-18 21:59] LABS: Bilirubin Negative (Negative); Blood Large (Negative); Clarity Cloudy (Clear); Glucose Negative (Negative); Ketones Negative (Negative); Leukocyte Esterase Trace (Negative); Nitrite Negative (Negative); Urobilinogen 0.2 EU/dL (Up TO 0.2); pH 7.5 (5-8)
[2020-07-18 22:06] LABS: ALT 31 U/L (14-59); AST 16 U/L (15-37); Albumin 3.8 g/dL (3.4-5.0); Alkaline Phosphatase 134 U/L (46-116); Anion Gap 9.1 mmol/L (3-11); BUN 10 mg/dL (7-18); Bilirubin, Total 0.3 mg/dL (0.2-1.0); CO2 27.9 mmol/L (21.0-32.0); CREATININE 0.9 mg/dL (0.55-1.02); Calcium 8.7 mg/dL (8.5-10.1); Chloride 104 mmol/L (98-107); Glucose 102 mg/dL (74-106); Sodium 141 mmol/L (136-145); Total Protein 8.4 g/dL (6.4-8.2)
[2020-07-18 22:07] LABS: Bacteria Negative HPF (Negative); Crystals Negative HPF (Negative); Epithelial Cells Rare HPF (Negative); Mucus Negative (Negative); Other Cells Negative (Negative); RBC >50 HPF (0-2); WBC 0-2 HPF (0-5)
[2020-07-18 22:08] LABS: C & S Indicated? Yes; Casts Negative LPF (Negative)
[2020-07-18 23:01] VITALS: BP 135/79; PULSE 92; RESP 20; O2SAT 100
[2020-07-18] MEDS: Ibuprofen 600 MG TAB PO (23:01)
--- NOTE | 2020-07-18 23:24 | DI.VRAD_ITS ---
PROCEDURE INFORMATION: Exam: XR Pelvis Exam date and time: 07/18/2020 10:24 PM Age: 25 years old Clinical indication: Other: Lower abdomen crmps, iud TECHNIQUE: Imaging protocol: XR pelvis. Views: 1 or 2 view. COMPARISON: No relevant prior studies available. FINDINGS: Bones/joints: Unremarkable. No acute fracture. Soft tissues: Unremarkable. Organs: IUD appears appropriately positioned IMPRESSION: 1. No acute findings. 2. Bowel gas pattern is unremarkable. 3. Bony pelvis and hip joints are unremarkable. 4. IUD appears to be appropriately positioned. Dictated and Authenticated by: Sky Alvares MD. Ordering:ALEX Holguin MD
== END 2020-07-18 23:01 | disposition home or self-care (01) ==
PROVIDERS: Emergency Provider Emergency Medicine; PCP Student in an Organized Health Care Education/Training Program
DX: N93.9 Abnormal uterine and vaginal bleeding, unspecified (principal); Z97.5 Presence of (intrauterine) contraceptive device
CPT/HCPCS: 36415; 80053; 81025; 86850; 86900; 86901; 99284; 72170; 81003; 81015; 85025; 87086

== ENCOUNTER 2021-02-28 11:40 | Outpatient (REF) | payer MEDICAID, SELFPAY | END 2021-02-28 11:41 | disposition home or self-care (01) | LOC: LBN 11:40 | PROVIDERS: PCP Student in an Organized Health Care Education/Training Program; Visit Provider Advanced Practice Midwife | DX: R10.2 Pelvic and perineal pain (principal) | CPT/HCPCS: 87480; 87510; 87660 ==

== ENCOUNTER 2021-06-12 04:21 | Outpatient (CLI) | payer MEDICAID, SELFPAY ==
--- NOTE | 2021-06-12 08:15 | DI.US_ITS ---
Exam(s) US OB 1ST TRIMESTER EXAM: US OB 1ST TRIMESTER CLINICAL HISTORY: dating viability of ,N92.6. COMPARISON: US US OB JAMIN WEIGHT from 07/30/2019 TECHNIQUE: Transabdominal Transvaginal first trimester obstetrical ultrasound performed. FINDINGS: Sonographic images demonstrate a single intrauterine gestation. A yolk sac and pole are seen. Sonographically assessed gestational age based upon crown-rump length of 3.3 cm is: 10 weeks 1 day Estimated date of delivery based on this ultrasound is: 01/07/2022 heart rate motion is Dopplered at: 160 bpm. No free fluid identified. Both ovaries appear sonographically normal. There is a 2 x 1.4 x 2 cm right corpus luteal cyst. Pelvic Measurments Uterus: 12.5 x 5.4 x 8.4 cm Rt Ovary: 4.4 x 2.1 x 4.2 cm Lt Ovary: 2.3 x 1.6 x 2.2 cm IMPRESSION: Single live intrauterine gestation as above. Estimated gestational age is 10 weeks 1 day. DATA REPOSITORY:
== END 2021-06-12 04:41 ==
PROVIDERS: PCP Student in an Organized Health Care Education/Training Program; Visit Provider Advanced Practice Midwife
DX: O20.8 Other hemorrhage in early pregnancy (principal); Z78.9 Other specified health status; Z3A.10 10 weeks gestation of pregnancy
CPT/HCPCS: 76801

== ENCOUNTER 2021-06-29 03:00 | Outpatient (CLI) | payer MEDICAID, SELFPAY ==
[2021-06-29 10:54] LABS: Abs Immature Grans 0.02 10^3/uL (0.0-0.06); Absolute Basophil Count 0.04 10^3/uL (0.0-0.2); Absolute Eosinophil Count 0.13 10^3/uL (0.0-0.7); Absolute Lymphocyte Count 2.84 10^3/uL (1.2-3.4); Absolute Monocyte Count 0.39 10^3/uL (0.1-0.8); Absolute Neutrophil Count 6.52 10^3/uL (1.2-6.7); Basophils % 0.4; Eosinophils % 1.3; Immature Grans % 0.2; Lymphocytes % 28.6; MCH 26.3 pg (27.0-33.0); MCHC 32.4 % (32.0-36.0); MCV 81 fL (80-95); MPV 9.4 fL (8.0-11.0); Monocytes % 3.9; Neutrophils % 65.6; Platelet Count 375 10^3/uL (130-400); RBC 4.57 10^6/uL (3.93-5.22); RDW 13.5 % (11.7-14.6); RDW-SD 39.5 fL; WBC 9.94 10^3/uL (4.4-10.8)
[2021-06-29 11:48] LABS: Hemoglobin A1C 5.7 % (<5.7); TSH (W/Ref FT4) 1.94 uIU/mL (0.36-3.74)
[2021-07-02 10:41] LABS: HIV-1/2 Ag & Ab Screen Negative (Negative)
[2021-07-02 10:57] LABS: Hepatitis B Surface Ag Negative (Negative)
[2021-07-02 10:59] LABS: Hepatitis C Ab w Rflx HCV PCR Negative (Negative)
[2021-07-02 11:14] LABS: Rubella IgG Ab (UVM) Positive (See Note); Varicella IgG Antibody Positive (See Note)
[2021-07-02 15:37] LABS: Syphilis IgG w/Reflex Nonreactive (Nonreactive)
== END 2021-06-29 03:01 | disposition home or self-care (01) ==
LOC: LBO 03:01
PROVIDERS: PCP Student in an Organized Health Care Education/Training Program; Visit Provider Advanced Practice Midwife
DX: Z34.91 Encounter for supervision of normal pregnancy, unspecified, first trimester (principal); Z3A.12 12 weeks gestation of pregnancy
CPT/HCPCS: 36415; 86787; 86803; 86850; 86900; 86901; 87340; 87389; 83036; 84443; 85025; 86762; 86780

== ENCOUNTER 2021-06-29 18:32 | Outpatient (REF) | payer MEDICAID, SELFPAY ==
[2021-06-29 13:15] LABS: *AMPHETAMINES SCREEN URINE Negative (Negative); *BARBITURATES SCREEN URINE Negative (Negative); *BENZODIAZEPINES SCREEN URINE Negative (Negative); Cannabinoids THC Negative (Negative); Cocaine Screen,Urine Negative (Negative); METHADONE URINE SCREEN Negative (Negative); OPIATES URINE SCREEN Negative (Negative); Tricyclic Antidepressants Negative (Negative)
[2021-07-05 14:17] LABS: Buprenorphine Negative ng/mL (Cutoff: 5.0); Norbuprenorphine Negative ng/mL (Cutoff: 2.5)
== END 2021-06-29 18:33 | disposition home or self-care (01) ==
LOC: LBN 18:32
PROVIDERS: PCP Student in an Organized Health Care Education/Training Program; Visit Provider Advanced Practice Midwife
DX: Z34.91 Encounter for supervision of normal pregnancy, unspecified, first trimester (principal); Z3A.11 11 weeks gestation of pregnancy; R39.89 Other symptoms and signs involving the genitourinary system
CPT/HCPCS: 80307; 87086

== ENCOUNTER 2021-07-13 15:19 | Outpatient (REF) | payer MEDICAID, SELFPAY ==
[2021-07-17 08:01] LABS: Chlamydia Result Negative (Negative); GC Result Negative (Negative)
== END 2021-07-13 15:20 | disposition home or self-care (01) ==
LOC: LBN 15:19
PROVIDERS: PCP Student in an Organized Health Care Education/Training Program; Visit Provider Advanced Practice Midwife
DX: Z34.92 Encounter for supervision of normal pregnancy, unspecified, second trimester (principal); Z3A.14 14 weeks gestation of pregnancy
CPT/HCPCS: 87491; 87591

== ENCOUNTER 2021-10-29 03:39 | Outpatient (CLI) | payer MEDICAID, SELFPAY ==
[2021-10-29 10:54] LABS: Abs Immature Grans 0.03 10^3/uL (0.0-0.06); Absolute Basophil Count 0.02 10^3/uL (0.0-0.2); Absolute Eosinophil Count 0.06 10^3/uL (0.0-0.7); Absolute Lymphocyte Count 1.93 10^3/uL (1.2-3.4); Absolute Monocyte Count 0.59 10^3/uL (0.1-0.8); Absolute Neutrophil Count 6.64 10^3/uL (1.2-6.7); Basophils % 0.2; Eosinophils % 0.6; HCT 33.1 % (36.0-46.0); HGB 11.3 g/dL (11.2-15.7); Immature Grans % 0.3; Lymphocytes % 20.8; MCH 27.4 pg (27.0-33.0); MCHC 34.1 % (32.0-36.0); MCV 80 fL (80-95); MPV 9.7 fL (8.0-11.0); Monocytes % 6.4; Neutrophils % 71.7; Platelet Count 356 10^3/uL (130-400); RBC 4.12 10^6/uL (3.93-5.22); RDW 13.1 % (11.7-14.6); WBC 9.27 10^3/uL (4.4-10.8)
[2021-10-29 12:05] LABS: Glucose,1 Hr (Glucola) 93 mg/dL (80-140)
== END 2021-10-29 03:40 | disposition home or self-care (01) ==
LOC: LBO 03:39
PROVIDERS: Advanced Practice Midwife; Obstetrics & Gynecology; PCP Student in an Organized Health Care Education/Training Program; Visit Provider Obstetrics & Gynecology Gynecology
DX: Z34.93 Encounter for supervision of normal pregnancy, unspecified, third trimester (principal)
CPT/HCPCS: 36415; 82950; 85025

== ENCOUNTER → 2021-11-13 01:55 | Outpatient (CLI) | payer MEDICAID, SELFPAY ==
--- NOTE | 2021-11-13 06:45 | DI.US_ITS ---
Exam(s) US OB JAMIN WEIGHT EXAM: US OB JAMIN WEIGHT CLINICAL HISTORY: weight,JAMIN at 32 weeks per [facility] recommend,o09.299,Z68.42. TECHNIQUE: Transabdominal obstetrical ultrasound performed. COMPARISON: US US OB DETAILED MORPHOLOGY from 08/10/2021 FINDINGS: Number of fetuses: 1 position: Cephalic Placental location:There is a grade 2 posterior placenta. No evidence of previa. BIOMETRIC DATA: BPD: 8.13cm, 32weeks 5days HC: 30.68cm,34weeks 1day AC: 30.55cm,34weeks 4days FL: 5.82cm,30weeks 3days EFW:2,133.77g,4lb 13.67oz,72.6% Composite Age:33weeks SHERICE:01/01/2022 Heart Rate: 132bpm Amniotic fluid index:13.59cm. Visually, amount of fluid is within normal limits. IMPRESSION: 1. Single live intrauterine gestation as above. There has been normal interval growth. 2. Estimated weight is 2134gms. This is the 73rd percentile. 3. Amniotic fluid index is 13.6 cm. Visually within normal limits. DATA REPOSITORY:
== END ==
PROVIDERS: PCP Student in an Organized Health Care Education/Training Program; Visit Provider Advanced Practice Midwife
DX: O09.293 Supervision of pregnancy with other poor reproductive or obstetric history, third trimester (principal)
CPT/HCPCS: 76816

== ENCOUNTER → 2021-12-07 00:57 | Outpatient (CLI) | payer MEDICAID, SELFPAY ==
--- NOTE | 2021-12-07 06:30 | DI.US_ITS ---
Exam(s) US OB JAMIN WEIGHT EXAM: US OB JAMIN WEIGHT CLINICAL HISTORY: growth,h/o macrosomia,covid,O98.512. TECHNIQUE: Transabdominal obstetrical ultrasound was performed. COMPARISON: US US OB JAMIN WEIGHT from 11/13/2021 FINDINGS: There is a single viable intrauterine gestation with cardiac activity identified-168 bpm The fetus is presently in cephalic position . Amniotic fluid: There is a somewhat decreased amount of amniotic fluid with an JAMIN of 6.82cm. Placental location: The placenta is posterior grade 3,with no evidence of placenta previa. Dating parameters place this at approximately 35 weeks and 1 day gestational age, implying SHERICE of January 10, 2022. BPD measures 36 weeks and 1 day HC measures 35 weeks and 5 days AC measures 35 weeks and 6 days FL measures 32 weeks and 5 days Estimated weight is 2576 gm-5 pounds 11 ounces Fetus is at the 33rd percentile on the Hadlock scale. IMPRESSION:: Viable 3rd trimester gestation, as described above. Oligohydramnios evident. JAMIN= 6.82 cm DATA REPOSITORY:
== END ==
PROVIDERS: PCP Student in an Organized Health Care Education/Training Program; Visit Provider Obstetrics & Gynecology
DX: O41.03X0 Oligohydramnios, third trimester, not applicable or unspecified (principal)
CPT/HCPCS: 76816

== ENCOUNTER 2021-12-10 19:20 | Outpatient (CLI) | payer MEDICAID, SELFPAY ==
[2021-12-10 19:38] VITALS: BP 136/76; PULSE 85; TEMP 18
--- NOTE | 2021-12-10 19:40 | NUR.NOTE ---
Pt arrives to floor uner the services of Dr Maxwell. Here for BPP and NST due to a previous Low JAMIN. Sherie admits that baby is active, and and very low. FHR 130's, active fetus and Sherie denies cramping, but feels like he is dropping Sherie is 36+1 gestationNursing Note:
--- NOTE | 2021-12-10 20:46 | PDOC.NST_ITS ---
Date of service: 12/10/21 Time of Service: 20:46 NST Evaluation Reason for NST Reasons for Nonstress Test: OLIGOHYDRAMNIOS Gestational Age Gestational Age in Weeks and Days: 36 Weeks and 0Days Test and Monitor Explained Test/Monitor Explained: Test Explained, Monitor Explained and Patient Verbalized Understanding Vital Signs Blood Pressure: 136/76 Pulse: 85 Temperature: 64.4 F NST Information Date on Monitor: 12/10/21 Time on Monitor: 19:22 Date off Monitor: 12/10/21 Time off Monitor: 19:38 Total Time on Monitor: 16 NST Interventions: None Contraction Frequency: 2 in 5 NST Evaluation Patient States Movement: Present FHR Baseline: 130 Variability: Moderate 6-25 bpm Accelerations: 15x15 Decelerations: None NST Results: Reactive Note Biophysical Profile Results of Biophysical Profile: JAMIN 12.9cm, largest pocket 7.02cm gross body movements, breathing and fine body movements noted. 10/10. VTX NST Note Note: Pt had NST last week for growth that showed EFW 33rd%. JAMIN 6.8. Pt presented for scheduled BPP this evening. Reassuring surveillance. Pt office visit at [facility] 12/14/21. NST Reviewed and Verified by: Amanda Kumar
[2021-12-10 20:50] VITALS: BP 136/76; PULSE 85; TEMP 18
== END 2021-12-13 10:24 | disposition home or self-care (01) ==
LOC: BCD 19:22 → OBS 19:50
PROVIDERS: PCP Student in an Organized Health Care Education/Training Program; Visit Provider Obstetrics & Gynecology Gynecology
DX: O41.03X0 Oligohydramnios, third trimester, not applicable or unspecified (principal); Z3A.36 36 weeks gestation of pregnancy
CPT/HCPCS: 59025

== ENCOUNTER 2021-12-14 14:52 | Outpatient (REF) | payer MEDICAID, SELFPAY ==
[2021-12-14 11:08] LABS: *AMPHETAMINES SCREEN URINE Negative (Negative); *BARBITURATES SCREEN URINE Negative (Negative); *BENZODIAZEPINES SCREEN URINE Negative (Negative); Cannabinoids THC Negative (Negative); Cocaine Screen,Urine Negative (Negative); METHADONE URINE SCREEN Negative (Negative); OPIATES URINE SCREEN Negative (Negative)
[2021-12-14 11:09] LABS: Tricyclic Antidepressants Negative (Negative)
[2021-12-19 12:32] LABS: Buprenorphine Negative ng/mL (Cutoff: 5.0); Norbuprenorphine Negative ng/mL (Cutoff: 2.5)
== END 2021-12-14 14:53 | disposition home or self-care (01) ==
LOC: LBN 14:52
PROVIDERS: PCP Student in an Organized Health Care Education/Training Program; Visit Provider Obstetrics & Gynecology
DX: Z34.93 Encounter for supervision of normal pregnancy, unspecified, third trimester (principal)
CPT/HCPCS: 80307; 80348; 87081

== ENCOUNTER 2021-12-30 10:05 | Inpatient (IN) | payer MEDICAID, SELFPAY ==
[2021-12-30] VITALS (13 sets, daily range): BP systolic 88–124; BP diastolic 42–65; PULSE 59–90; RESP 16–18; TEMP 36.5–37; O2SAT 97–100; BMI 45.9
[2021-12-30 09:35] LABS: ROM Plus Positive
[2021-12-30 10:45] LABS: HCT 36.2 % (36.0-46.0); MCHC 33.1 % (32.0-36.0); MCV 82 fL (80-95); MPV 10.6 fL (8.0-11.0); Platelet Count 353 10^3/uL (130-400); RBC 4.44 10^6/uL (3.93-5.22); RDW 13.2 % (11.7-14.6); RDW-SD 38.7 fL; WBC 10.67 10^3/uL (4.4-10.8)
[2021-12-30 10:51] LABS: Source Nasal/Nares
--- NOTE | 2021-12-30 10:53 | W.ANESPRE ---
General Info Date of Service Date Performed: 12/30/21 Height: 5 ft 9 in Weight: 141.2 kg Body Mass Index (BMI): 45.9 Meds Allergies and Home Medications Allergies Allergy/AdvReac Type Severity Reaction Status Date / Time procaine [From Novocain] Allergy Severe Verified 12/28/21 10:50 hydrocortisone Allergy Intermediate hives Verified 12/28/21 10:50 nifedipine Allergy Swelling Verified 12/28/21 10:50 zonisamide [From Zonegran] AdvReac rash Verified 12/28/21 10:50 Home Medication Medication Instructions Recorded fluconazole 200 mg tablet 200 mg PO ONCE #1 tab 12/29/21 (Diflucan) Current Visit Medications: Current Medications Generic Name Dose Route Start Last Admin Trade Name Freq PRN Reason Stop Dose Admin Sodium Chloride 500 mls @ 0 mls/hr 12/30/21 10:05 Saline 500ml Bag IV PRN PRN As Directed IV Miscellaneous Supplies 1 each 12/30/21 10:15 Iv Access IV DIRECTED ASHLIE Sodium Chloride 0 ml 12/30/21 10:05 Normal Saline Flush 10 Ml Syr IVP PRN PRN PFSH Active Problems Active Problems: Problem Status Onset Code GBS (group B Streptococcus carrier), +RV culture, currently O99.820 COVID-19 affecting in second trimester O98.512, U07.1 History of macrosomia in infant in prior , currently O09.299 Uterine scar from previous delivery, antepartum O34.219 Z34.90 Adult BMI 45.0-49.9 kg/sq m Z68.42 Psoriasiform eczema L30.8 Lumbago with sciatica M54.40 Other intervertebral disc displacement, lumbar region M51.26 Disc disorder of lumbar region ~15 M51.9 Intervertebral disc disorders with radiculopathy, lumbar region M51.16 Food sensitivity with gastrointestinal symptoms T78.1XXA Fragrance hypersensitivity Z91.09 Gluten intolerance K90.41 Anxiety F41.9 Medical History Medical History (Updated 12/30/21 @ 12:23 by Nyasia Dawn MD) Amenorrhea, unspecified Chronic vulvitis Date of last menstrual period (LMP) unknown Dyspareunia in female Family history of diabetes mellitus Grandmother Family history of spinal stenosis Family history of thyroid disease Family hx of hypertension Uncles Flank pain Missed menses Overweight Pelvic floor instability Lower back + pelvic floor issues 2' pregnancies, , farm work, and recent sedentary work with online classes. Positive test Presence of IUD Prolonged menstruation Radiculopathy, lumbar region 12/16/18 [facility] Vaginal bleeding Weight gain Surgical History Surgical History Previous section TWO C-SECTIONS.. 11/04/2017. I OL for back pain at 40W EGA. LTCS arrest of dilation. M. [id number]. Pradeep .. 08/18/2019 attempted .39 weeks. Active labor with SROM. Prior section. macrosomia. Unengaged vertex. M. 9lbs 10oz. Ezio S/P section Tobacco Smoking/Tobacco Use Status: Former Tobacco Use Alcohol Alcohol Intake: former Details: stopped w/ knowledge of . Substance Use Substance use: Never Substance use type: does not use Details: No IV Drug Use Prental History History 3 Para 2 Hx # Term Pregnancies 2 Multiple births 0 Hx # Pregnancies 0 Ectopic pregnancies 0 AB induced 0 Hx Number of Living Children 2 AB spontaneous 0 Past Pregnancies Del. Date GA/Weeks # Preg Succ Route Wgt Sex Labor Lgth Anesthesia Location Prov Complic Unknown 11/04/17 40 No 4280.778 g Male [facility] 08/18/19 38 No 4365.827 g Male Opal Kiser Delivery Date: Last Updated by: Maritza Ventura LPN Spontaneous ROM; Failed ; repeat Delivery Date: 11/04/17 Last Updated by: Paloma Short CNM IOL for back pain, herniated disc. Corona induction, Pitocin, 3 day induction. for FTP. Dilated to 7- 8 cms, FHR decellerations. Pradeep Vital Signs and Lab Results Vital Signs Most Recent Vital Signs in EMR: Most Recent Vital Signs Temp Pulse Resp BP 36.9 C 90 17 114/65 12/30/21 09:25 12/30/21 09:26 12/30/21 09:25 12/30/21 09:26 Lab Results Result Diagrams: 12/30/21 10:30 Blood Type / Crossmatch: Patient ABO/Rh O Positive 12/30/21 Antibody Screen NEGATIVE 12/30/21 Complete Blood Count: White Blood Count 10.67 10^3/uL (4.4-10.8) 12/30/21 10:30 Red Blood Count 4.44 10^6/uL (3.93-5.22) 12/30/21 10:30 Hemoglobin 12.0 g/dL (11.2-15.7) 12/30/21 10:30 Hematocrit 36.2 % (36.0-46.0) 12/30/21 10:30 Platelet Count 353 10^3/uL (130-400) 12/30/21 10:30 Complete Metabolic Panel: No Data to Display Liver Function Panel: No Data to Display Coagulation Panel: No Data to Display Cardiac Panel: No Data to Display Arterial Blood Gas: No Data to Display Venous Blood Gas: No Data to Display Pancreas Panel: No Data to Display Thyroid Panel: No Data to Display Infectious Disease: Coronavirus (COVID-19)(PCR) Negative (Negative) 12/30/21 10:35 Coronavirus 2019 Source Nasal/Nares 12/30/21 10:35 Blood Cultures: No Data to Display Toxicology Panel: Urine Amphetamines Screen Negative (Negative) 12/14/21 08:30 Urine Benzodiazepines Screen Negative (Negative) 12/14/21 08:30 Urine Barbiturates Screen Negative (Negative) 12/14/21 08:30 Urine Cocaine Screen Negative (Negative) 12/14/21 08:30 Urine Methadone Screen Negative (Negative) 12/14/21 08:30 Urine Opiates Screen Negative (Negative) 12/14/21 08:30 Ur Tricyclic Antidepressants Screen Negative (Negative) 12/14/21 08:30 Ur Tetrahydrocannabinol (THC) Scrn Negative (Negative) 12/14/21 08:30 Panel: No Data to Display Anesthesia Assessment and Plan Anesthesia History Personal History: No History of Anesthesia Complications Family History: No Family History of Anesthesia Complications Exercise Tolerance Exercise Tolerance: Metabolic Equivalents>4 Pertinent Negatives Pertinent Negatives: No Symptoms of GERD, No Major Cardiovascular Symptoms or Complaints and No Major Pulmonary Symptoms or Complaints Cardiac & Pulmonary Exam Cardiac Exam: Normal S1/S2 Heart Sounds Pulmonary Exam: Clear Bilateral Breath Sounds Implantable Cardiac Device Does patient have a Pacemaker or an ICD?: No Airway Exam Known Difficult Airway: No Mallampati Class: 1 Mouth Opening: Normal (> 3cm) Thyromental Distance: Greater than 3 cm Neck Range of Motion: Full ROM Neck Circumference: Normal Teeth Condition: Normal Dentition ASA Classification ASA Score: ASA 3 Emergency Case?: No NPO Status NPO Status: Full Stomach Status Status: Confirmed Anesthesia Plan Resuscitation Status: Full Code Anesthesia Technique: Spinal Anesthesia Airway Planned: Natural Airway Monitors Used: Standard Monitors
[2021-12-30 11:21] LABS: COVID-19 PCR Negative (Negative)
[2021-12-30] MEDS: Lactated Ringers 1,000 ML 200 ML IV ×2 (11:42→12:41)
[2021-12-30] MEDS: Normal Saline Flush 10 ML SYR IVP (11:43)
[2021-12-30] MEDS: AZITHROMYCIN 500 MG in Normal Saline 250 ML 250 MG IVPB (11:43)
--- NOTE | 2021-12-30 12:11 | HPE_ITS ---
Date of service: 12/30/21 Time of Service: 12:11 Assessment and Plan Assessment and plan (1) Rupture, membranes, premature: Status: Acute Assessment and plan: Pt is a P2 @38.6wks GA with rupture of membranes and likely early labor. Prior C section x2 and desires repeat. Declines tubal sterilization. Will proceed with RCS. (2) Uterine scar from previous delivery, antepartum: Status: Acute OB-HPI Labor/Delivery History of Present Illness Reason for Visit: NST Chief Complaint: Uterine Contractions; Suspected Rupture of Membranes , Associated Signs and Symptoms of Suspected ROM: leaking fluid. SHERICE Calculator Estimated Delivery Date Method Current WG Current Estimate 01/07/22 Ultrasound #1 38w 6d Other Estimates 01/25/22 LMP (Uncertain) 36w 2d History of Present Expected Delivery Route/Plan Repeat C/S - MD FOB/ - Jp Larios Specific Issues/Plan 1. Previous C/S x2, desires repeat C/S at [facility] - RC/S scheduled for 01/02/22. Pt DECLINES tubal sterilization. 2. General anesthesia last deliv, hx spinal stenosis & bulging disc - bulge is now improved per MRI @ [facility] [place] Anesthesia consult 09/21/2021-done. No issues - planning epidural. 3. Morbid obesity - Level 2 scan, placentation & MFM consult [place] [facility] [place] MFM recommends growth US at 32 weeks, NST's weekly at 34 weeks due to BMI >40 - declines early glucola, QID finger sticks @ 14wks wnl; 1hr GTT 10/29/21___ - Growth sono 11/13/21 4. Declines all genetic screening tests 5. Pt & FOB are unvaccinated against COVID 6. Hx macrosomia x2 - planning CS 6a, Growth US 11/13 73%ile, JAMIN 13.6 Narrative: Started leaking small amounts of fluid around 5am. Also having ctxs about every 15min. No bleeding. Good movement. Continued to have to change a pad every 30min - clear fluid. Review of Systems Constitutional Constitutional: Reports system reviewed and no additional complaints, except as documented Gastrointestinal Gastrointestinal: Denies nausea and Denies vomiting Genitourinary Genitourinary: Reports system reviewed and no additional complaints, except as documented Musculoskeletal Comments: No regular contractions PFSH All Active Problems (Updated 12/30/21 @ 12:23 by Nyasia Dawn MD) Rupture, membranes, premature (Acute) Anxiety (Chronic) Gluten intolerance (Acute) Lumbago with sciatica (Acute) Bilateral cold laser therapy for management. Other intervertebral disc displacement, lumbar region (Acute) Ctl disc protrusion @ L5, S1 per MRI Sep 2017 ([facility]). Pain/numbness. Intervertebral disc disorders with radiculopathy, lumbar region (Acute) 12/16/18 [facility] (with L5 nerve root damage) Fragrance hypersensitivity (Acute) Asthmatic or allergic reaction Food sensitivity with gastrointestinal symptoms (Acute) Mo has eosino esophagitis. Disc disorder of lumbar region (Acute ~04/03/20) MRI at [facility]-results scanned Psoriasiform eczema (Acute) Adult BMI 45.0-49.9 kg/sq m (Acute) (Acute) Uterine scar from previous delivery, antepartum (Acute) uterine scar x2 History of macrosomia in infant in prior , currently (Acute) COVID-19 affecting in second trimester (Acute) GBS (group B Streptococcus carrier), +RV culture, currently (Acute) Medical History (Updated 12/30/21 @ 12:23 by Nyasia Dawn MD) Amenorrhea, unspecified Chronic vulvitis Date of last menstrual period (LMP) unknown Dyspareunia in female Family history of diabetes mellitus Grandmother Family history of spinal stenosis Family history of thyroid disease Family hx of hypertension Uncles Flank pain Missed menses Overweight Pelvic floor instability Lower back + pelvic floor issues 2' pregnancies, , farm work, 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 Positive test Presence of IUD Prolonged menstruation Radiculopathy, lumbar region 12/16/18 [facility] Vaginal bleeding Weight gain Surgical History Previous section TWO C-SECTIONS.. 11/04/2017. I OL for back pain at 40W EGA. LTCS arrest of dilation. M. 1hec7ey. Pradeep .. 08/18/2019 attempted .39 weeks. Active labor with SROM. Prior section. macrosomia. Unengaged vertex. M. 9lbs 10oz. Ezio S/P section Family History Mother No problems noted. Father Temporal lobe epilepsy Possible Sister Celiac disease Social History Smoking/Tobacco Use Status: Former Tobacco Use Quit Date: 02/17/15 Tobacco: How many years used: 1 Smoking risk assessment performed?: Yes Alcohol Intake: former Details: stopped w/ knowledge of . Drug use: Never Substance use type: does not use Details: No IV Drug Use Adopted: No Caregiver/Support person: Yes (Employed As.) Foster care: No Household members: spouse and children Number of Children: 1 Do you need help understanding health information?: Rarely current occupation: [employer] Work[employer] Sexually active: Yes Do you think of yourself as: straight/heterosexual Current gender identity: female What is your relationship status?: Panel score (0-1 are the most socially isolated patients): 1 What type of physical activity do you participate in: walking and other Details: yoga daily Duration: 15-30 minutes/day Frequency: daily Seatbelt use: always Do you feel safe at home: Yes Do you feel safe in your relationship?: Yes History History 3 Para 2 Hx # Term Pregnancies 2 Multiple births 0 Hx # Pregnancies 0 Ectopic pregnancies 0 AB induced 0 Hx Number of Living Children 2 AB spontaneous 0 Past Pregnancies Del. Date GA/Weeks # Preg Succ Route Wgt Sex Labor Lgth Anesth esia Location Prov Complic Unknown 11/04/17 40 No 9 lb 7 oz Male [facility] 08/18/19 38 No 9 lb 10 oz Male [facility] Delivery Date: Last Updated by: Maritza Ventura LPN Spontaneous ROM; Failed ; repeat Delivery Date: 11/04/17 Last Updated by: Paloma Short CNM IOL for back pain, herniated disc. Corona induction, Pitocin, 3 day induction. for FTP. Dilated to 7- 8 cms, FHR decellerations. Pradeep Meds Allergies and Home Medications Allergies Allergy/AdvReac Type Severity Reaction Status Date / Time procaine [From Novocain] Allergy Severe Verified 12/28/21 10:50 hydrocortisone Allergy Intermediate hives Verified 12/28/21 10:50 nifedipine Allergy Swelling Verified 12/28/21 10:50 zonisamide [From [facility]] AdvReac rash Verified 12/28/21 10:50 Home Medications Medication Instructions Recorded Confirmed Type fluconazole 200 mg tablet 200 mg PO ONCE #1 tab 12/29/21 12/30/21 Rx (Diflucan) Exam Physical Exam Vital signs: Temp Pulse Resp BP 97.9 F 74 18 124/59 L 12/30/21 11:46 12/30/21 11:46 12/30/21 11:46 12/30/21 11:46 Vital Signs Reviewed: Yes Detailed Labor and Delivery Exam Velasco Score: Cervical Points Exam 0 1 2 3 Dilation Closed 1-2cm 3-4 cm 5-6cm Effacement 0-30% 40-50% 60-70% 80% Consistency Firm Medium Soft Station -3 -2 -1,0 +1,+2 Position Posterior Mid Anterior HEENT Exam HEENT Exam: Normal Detailed HEENT Exam Head: Present normocephalic and atraumatic Abdominal Exam Abdominal Exam: Normal (Gravid, nontender) Detailed Abdominal Exam Comments: gravid, nontender Extremities Exam Extremities Exam: Normal (no edema) Detailed Neurological Exam Neurological: Present alert, oriented X3 and CN II-XII intact DetailedPsychiatric Exam Psychiatric: Present normal affect, normal thought process and cooperative Results Results Group Beta Strep: Negative Blood Type: O+ Risk Assessment Risk for Shoulder Dystocia Historical/Initial OB: POSITIVE FOR: Pre- BMI>30 and Previous Macrosomia; NEGATIVE FOR: Pelvic Abnormality or Previous Shoulder Dystocia Increased Risk?: No Counseling: planning repeat C/S Risk for Pre-Eclampsia Daily Dose ASA Indicated: No Date Initiated/Initials: not indicated @ 12 wks, pt to do 2 wks QID finger sticks to r/o pre-gest DM Yes, if one or more: NEGATIVE FOR: Hx Pre-E/Gest HTN, Chronic HTN, Multiple Gestation, Pre-gestational DM, Renal Disease, Systemic Lupus or APA Syndrome Yes, if 2 or more: POSITIVE FOR: BMI>30; NEGATIVE FOR: Nulliparity, Age>= 35 yrs, >10yr btwn pregnancies, ethinicty, Mother/Sister w/ Pre-E or Previous IUGR Risk for Post- Hemorrhage Initial: NEGATIVE FOR: Multiple Gestation, Previous PPH, Known Clotting Deficiency, Grand Multiparity or Anticoagulation At Risk?: No Risks Reviewed Risks Reviewed Upon Admission: Yes
[2021-12-30] MEDS: Sodium Citrate 30 ML CUP PO (12:33)
[2021-12-30] MEDS: ceFAZolin 3,000 MG in Normal Saline 100 ML 200 MG IVPB (13:04)
--- NOTE | 2021-12-30 14:20 | ROE_ITS ---
Date of service: 12/30/21 Time of Service: 13:00 Operative Note Operative Note PRE-OP DIAGNOSIS: IUP @38.6wks, ROM, prior CS x2 POST-OP DIAGNOSIS: same PROCEDURE: RLTCS SURGEON: Nyasia Dawn ASSISTING SURGEON: Elly Mariano ANESTHESIA TYPE: Spinal Refer to Anesthesia Record ESTIMATED BLOOD LOSS: 600 COMPLICATIONS: None Patient was transported to: floor Patient's condition: stable Indications: P2 @38.6wks with 2 prior CS, planning repeat C section this week who had ROM at 5am and started having intermittent contractions. Findings: Moderate scarring between skin and peritoneum, minimal filmy scar tissue from upper right uterus to the peritoneum and some over the BRIT segment. Otherwise, normal appearing uterus, ovaries and tubes. Normal appearing placenta. Male , Procedure Description: After informed consent was signed the patient was taken to the operating room. She was given spinal anesthesia, SCDs were placed on her legs and a haley catheter was introduced into her bladder. The heart rate was checked and was normal. She underwent abdominal and vaginal prep and was draped in the dorsal supine position with a leftward tilt. The patient was tested and spinal anesthesia was found to be adequate. A time out was performed. The skin was injected with bupivocaine along the length of the planned incision.A skin incision was made with the scalpel and carried down to the underlying layer of fascia with blunt dissection. The fascia was incised on either side of the midline and the fascial incision extended laterally with a combination of sharp and blunt dissection. The inferior edge of the fascia was grasped with shahla clamps and tented up and dissected down with sharp issection. Then the superior edge of the fascial incision was grasped with shahla clamps and tented up and dissected down with sharp dissection. The re ctus muscles were already in the midline. The peritoneum was carefully entered with sharp dissection. The peritoneal incision was extended laterally with blunt dissection. The bladder blade was inserted. A transverse incision was made in the lower uterine segment with the scalpel. The incision was extended superiorly and inferiorly with blunt pressure. The infants head delivered with fundal pressure followed by the shoulders and the rest of the body. The cord was milked toward the baby and after 1min it was clamped x2 and cut. The baby was handed to the supervisor cook room. Cord blood was collected. The placenta delivered with fundal massage and gentle cord traction and appeared to be intact. The uterus was exteriorized and cleared of clots and debris. A filmy adhesion from the upper right uterus to the peritoneum was easily released with sharp and blunt dissection - no active bleeding. The uterine incision was closed with 0- vicryl in a running locked fashion with a second layer of suture imbricating the first. Good hemostasis was noted. A small adhesion on the left side of the incision was carefully taken down with blunt dissection. The uterus was placed back into the abdominal cavity. Clots were cleared from the peritoneal cavity with lap sponges. The incision was inspected once again and good hemostasis was noted. There was good hemostasis of the rectus muscles. The fascia was closed with 0- vicryl in a running unlocked fashion. The subcuticular layer was irrigated and closed with interrupted sutures of 3-0 vicryl. The skin was closed with 4-0 vicryl in a running subcuticular fashion. The incision was cleaned. Mastisol and steristrips were placed. A dressing was placed. The fundus was palpated to be firm. The patient was moved to the stretcher and taken to the recovery room in stable condition.
[2021-12-30] MEDS: Bupivacaine 0.25% Pres-Free 30 ML VIAL (14:23)
[2021-12-30] MEDS: Naloxone 0.4 MG/ML VIAL IVP ×3 (15:25→17:51)
--- NOTE | 2021-12-30 18:40 | W.ANESPOSTOP ---
Postoperative Evaluation Date, Time and Location Date Performed: 12/30/21 Time Performed: 18:02 Patient Location: Obstetrics Vital Signs Most Recent Imported Vital Signs: Most Recent Vital Signs Temp Pulse Resp BP Pulse Ox 36.6 C 68 16 97/51 L 100 12/30/21 18:14 12/30/21 18:14 12/30/21 18:14 12/30/21 18:14 12/30/21 18:14 Pain Score Most Recent Pain Score: Most Recent Pain Score Pain Level 6 12/30/21 11:04 Assessment Mental Status: Awake (Alert & Oriented to Patient Baseline) Airway and Respiratory Function: Patent airway with normal (patient baseline) respiratory exam Cardiovascular Function: Hemodynamically Stable Hydration Status: Adequately Hydrated Nausea & Vomiting: No Nausea or Vomiting Pain: Pain is tolerable per patient Peripheral Nerve Block: Patient did not receive a nerve block Postoperative Comments:: Pt. has continued itching from IT narcotics that is responding well to small IV narcan doses.
[2021-12-30] MEDS: Ketorolac 30 MG/ML VIAL IVP (19:19)
[2021-12-30] MEDS: Lactated Ringers 1,000 ML 120 ML IV (21:27)
--- NOTE | 2021-12-30 22:11 | NUR.NOTE ---
21:30: ARTERIAL EMBALMER went in with pt to assist with ambulating and washing up. Pt was fully washed up at bedside (including mundo-care), as well as bed linen change. Pt stated that standing up for a few minutes to wash up and walk to the sink to wash her hands felt good and stated she did not feel any discomfort during that time.
[2021-12-31] VITALS (7 sets, daily range): BP systolic 100–114; BP diastolic 50–70; PULSE 67–90; RESP 16–20; TEMP 36.5–37.1; O2SAT 96–99
[2021-12-31] MEDS: Ketorolac 30 MG/ML VIAL IVP ×2 (01:44→07:47)
[2021-12-31] MEDS: oxyCODONE 5 mg/Acetaminophen 325 mg TAB PO ×4 (04:54→21:19)
--- NOTE | 2021-12-31 06:22 | NUR.NOTE ---
Nursing Note: Pt up to BR with assist. Corona catheter removed, tip intact, pt tolerated well. Pt DTV. Brea care performed and pt washed up at sink before returning to freshly made bed. SCD's reapplied.Pt instructed to call before ambulating. VSS.
[2021-12-31] MEDS: Normal Saline Flush 10 ML SYR IVP (07:47)
[2021-12-31] MEDS: Docusate Sodium 100 MG CAP PO (15:09)
--- NOTE | 2021-12-31 17:15 | W.PM.OBPNV1 ---
Date of service: 12/31/21 Time of Service: 15:00 Assessment and Plan Assessment and plan (1) care following delivery: Status: Acute Assessment and plan: POD#1 s/p RCS, doing well. No significant concerns. Routine care. Circ for baby tomorrow am and will likley go home tomorrow. Subjective Subjective Interval history: Pain controlled on PO meds. +flatus, no BM yet. Tolerating regular diet. Minimal lochia. Patient's Mood: good, tired baby status: Doing well feeding status: Exclusively breast feeding Exam Physical Exam Vital signs: Temp Pulse Resp BP Pulse Ox 98.2 F 69 20 104/60 97 12/31/21 15:17 12/31/21 15:17 12/31/21 15:17 12/31/21 15:17 12/31/21 11:56 Vital Signs Reviewed: Yes Constitutional Constitutional: no acute distress and cooperative Detailed HEENT Exam Head: Present normocephalic and atraumatic Respiratory Exam Respiratory Exam: Normal Abdominal Exam Abdomen: Tender (mildly) Comments: Incision clean, dressing still in place. Fundal Exam Fundus: Below Umbilicus and Firm Extremities Exam Extremity Exam: Edema (trace) Detailed Neurological Exam Neurological: Present alert, oriented X3 and CN II-XII intact Results Hemoglobin/Hematocrit: Hgb 12.0 g/dL (11.2-15.7) 12/30/21 10:30 Hct 36.2 % (36.0-46.0) 12/30/21 10:30
[2021-12-31] MEDS: Ibuprofen 600 MG TAB PO (23:31)
[2022-01-01] MEDS: oxyCODONE 5 mg/Acetaminophen 325 mg TAB PO ×5 (01:52→21:53)
[2022-01-01 01:58] VITALS: BP 109/68; PULSE 88; RESP 16; TEMP 36.7
[2022-01-01] MEDS: Ibuprofen 600 MG TAB PO ×3 (05:54→19:00)
--- NOTE | 2022-01-01 09:15 | OBPPV_ITS ---
Date of service: 01/01/22 Time of Service: 09:15 Assessment and Plan Assessment and plan (1) care following delivery: Status: Acute Assessment and plan: Plan discharge for tomorrow. Pt will have Percocet and Ibuprofen for pain relief. Continue to support . Subjective Subjective Interval history: POD 2 unscheduled repeat C/S after presented in labor. had an episode of tachypnea yesterday which resolved spontaneously. Discharge planned for 01/02/22 for both pt and her . Patient comments: Incisional pain (Pain relieved using 2 Percocet and 1 Ibuprofen. ) Patient's Mood: Good. baby status: Doing well (Tachypnea resolved. ), Nursing well, Supplemental feeding going well (Had one feed supplemented with formula.), Rooming in and Strong Bonding Observed; no Excessive weight loss [place] feeding status: Breast and formula feeding Exam Physical Exam Vital signs: Temp Pulse Resp BP Pulse Ox 98.0 F 88 16 109/68 97 01/01/22 01:58 01/01/22 01:58 01/01/22 01:58 01/01/22 01:58 12/31/21 11:56 Vital Signs Reviewed: Yes Narrative: No issues. Constitutional Constitutional: no acute distress (Pain is her only complaint. Performing ADLs w/o difficulty) HEENT Exam HEENT Exam: Not Done Neck Exam Neck Exam: Normal Respiratory Exam Respiratory Exam: Normal Cardiovascular Exam Cardiovascular Exam: Normal Abdominal Exam Abdomen: Tender (mild tenderness with palpation) Comments: incision clean dry and intact. Fundal Exam Fundus: Below Umbilicus Rectal Exam Rectal Exam: Not Done Extremities Exam Extremity Exam: Normal, Edema (1+ non-pitting pretibial edema.), Pulses Intact, Normal Capillary Refill and Warm to Touch Back/Spine/Pelvis Exam Back Exam: Normal Skin Exam Skin Exam: Normal Neurological Exam Neurological Exam: Normal Psychiatric Exam Psychiatric Exam: Normal Results Hemoglobin/Hematocrit: Hgb 12.0 g/dL (11.2-15.7) 12/30/21 10:30 Hct 36.2 % (36.0-46.0) 12/30/21 10:30
[2022-01-01] MEDS: Docusate Sodium 100 MG CAP PO (13:22)
[2022-01-01 15:25] VITALS: BP 108/64; PULSE 75; RESP 16; TEMP 36.7; O2SAT 98
[2022-01-01 20:00] VITALS: BP 116/78; PULSE 81; RESP 16; TEMP 36.9
[2022-01-02] MEDS: Ibuprofen 600 MG TAB PO ×3 (01:29→15:30)
[2022-01-02] MEDS: Docusate Sodium 100 MG CAP PO (01:30)
[2022-01-02] MEDS: oxyCODONE 5 mg/Acetaminophen 325 mg TAB PO ×3 (04:19→16:50)
[2022-01-02 08:30] VITALS: BP 141/66; PULSE 102; RESP 20; TEMP 36.6; O2SAT 99
--- NOTE | 2022-01-02 08:41 | DSE_ITS ---
Date of service: 01/02/22 Time of Service: 08:43 DS: Diagnosis Discharge Diagnosis (1) care following delivery: Status: Acute (2) Status post repeat low transverse section: Status: Acute Asessment and Plan: 12/30/21. SROM at 38w6d EGA. Pt had been scheduled for repeat C/S 01/02/22. M. [id number] Discharge Plan Disposition Patient Disposition: Home Condition: Improving Discharge Details Reason For Visit: Term Labor Admit Date/Time: 12/30/21 10:05 Admit Provider: Nyasia Dawn Attending Provider: Nyasia Dawn Primary Care Provider: Rhoda Hidalgo Hospital Course Hospital Course: Patient was admitted center at 30 8W6D EGA with spontaneous rupture membranes uterine contractions. She underwent a repeat delivery of a viable male weighing 8 pounds 13 ounces. Apgars. Name. Postop course was complicated by her having a episode of transient tachypnea that resolved spontaneously. Patient supplemented her with formula while br east-feeding. Her pain was controlled with Percocet and ibuprofen which she will be discharged home with. The office in approximately 2 weeks for postop check Home Meds and New Rx's Prescriptions: No Action fluconazole [Diflucan] 200 mg tablet 200 mg PO ONCE Qty: 1 2RF Discharge Instructions Additional Instructions: You prescription for Percocet 5/325 mg and ibuprofen 600 mg every 6 hours will be sent to your pharmacy. You may pick those prescriptions up on the way home. Stand Alone Forms: BC Instructions, BC Discharge Instruc Activity:: Activity as Tolerated Equipment/Supplies:: No Equipment Needed Diet:: As Tolerated Discharge Orders Discharge Orders: Discharge Order (Routine); Ordered 01/02/22 Ordered By: Amanda Kumar OB:DS Summary Summary Episiotomy Description: None Laceration Extension: N/A Contraception Discussed Contraception Discussed: Yes Contraceptive Plan: Undecided (natural family planning. fertility awareness.), [place] Gender-Baby A: Male weight: 8 lb 13.096 oz Status at Discharge Functional status at discharge: independent ambulation Overall status at discharge: patient is progressing back to baseline Mental Status: mental status grossly normal Speech and Movement: speech and movement normal Mood: congruent mood Affect: normal affect (Patient is tired she is slept very little in the period time since delivery) Exam Physical Exam Vital signs: Temp Pulse Resp BP Pulse Ox 98.4 F 81 16 116/78 98 01/01/22 20:00 01/01/22 20:00 01/01/22 20:00 01/01/22 20:00 01/01/22 15:25 Vital Signs Reviewed: Yes Narrative: POD 3. RCS after the center with uterine contractions spontaneous rupture of membranes. Postop course has been complicated by the infant experiencing tachypnea on postop day 1. The tachypnea resolved spontaneously. has been successfully breast-feeding. Plan is discharged to home on postop day 3 with Percocet and ibuprofen for pain. Constitutional Constitutional: no acute distress HEENT Exam HEENT Exam: Not Done Neck Exam Neck Exam: Normal Respiratory Exam Respiratory Exam: Normal Cardiovascular Exam Cardiovascular Exam: Normal Abdominal Exam Abdomen: Tender (Over incision line) Fundal Exam Fundus: Below Umbilicus Rectal Exam Rectal Exam: Not Done Extremities Exam Extremity Exam: Normal, Edema (1+ nonpitting pre-tibial edema) and Warm to Touch Back/Spine/Pelvis Exam Back Exam: Normal Skin Exam Skin Exam: Normal Neurological Exam Neurological Exam: Normal Psychiatric Exam Psychiatric Exam: Normal PFSH All Active Problems (Updated 12/31/21 @ 17:17 by Nyasia Dawn MD) Status post repeat low transverse section (Acute) 38.6wks with 2 prior CS, planning repeat C section 01/02/22 with LINDA and contractions Anxiety (Chronic) Gluten intolerance (Acute) Lumbago with sciatica (Acute) Bilateral cold laser therapy for management. Other intervertebral disc displacement, lumbar region (Acute) Ctl disc protrusion @ L5, S1 per MRI Sep 2017 ([facility]). Pain/numbness. Intervertebral disc disorders with radiculopathy, lumbar region (Acute) 12/16/18 [facility] (with L5 nerve root damage) Fragrance hypersensitivity (Acute) Asthmatic or allergic reaction Food sensitivity with gastrointestinal symptoms (Acute) Mo has eosino esophagitis. Disc disorder of lumbar region (Acute ~04/03/20) MRI at [facility] Day-results scanned Psoriasiform eczema (Acute) Adult BMI 45.0-49.9 kg/sq m (Acute) (Acute) Uterine scar from previous delivery, antepartum (Acute) uterine scar x2 History of macrosomia in infant in prior , currently (Acute) COVID-19 affecting in second trimester (Acute) GBS (group B Streptococcus carrier), +RV culture, currently (Acute) Rupture, membranes, premature (Acute) care following delivery (Acute) Medical History (Updated 12/31/21 @ 17:17 by Nyasia Dawn MD) Amenorrhea, unspecified Chronic vulvitis Date of last menstrual period (LMP) unknown Dyspareunia in female Family history of diabetes mellitus Grandmother Family history of spinal stenosis Family history of thyroid disease Family hx of hypertension Uncles Flank pain Missed menses Overweight Pelvic floor instability Lower back + pelvic floor issues 2' pregnancies, , farm work, 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 Positive test Presence of IUD Prolonged menstruation Radiculopathy, lumbar region 12/16/18 [facility] Vaginal bleeding Weight gain Surgical History (Updated 01/02/22 @ 08:48 by Amanda Kumar MD) Previous section THREE C-SECTIONS.. 11/04/2017. I OL for back pain at 40W EGA. LTCS arrest of dilation. M. [id number]. Pradeep .. 08/18/2019 attempted .39 weeks. Active labor with SROM. Prior section. macrosomia. Unengaged vertex. M. 9lbs 10oz. Ezio 12/30/21. SROM. RC/S at 38w6d. M. S/P section Family History Mother No problems noted. Father Temporal lobe epilepsy Possible Sister Celiac disease Social History Smoking/Tobacco Use Status: Former Tobacco Use Quit Date: 02/17/15 Tobacco: How many years used: 1 Smoking risk assessment performed?: Yes Alcohol Intake: former Details: stopped w/ knowledge of . Drug use: Never Substance use type: does not use Details: No IV Drug Use Adopted: No Caregiver/Support person: Yes (Employed As.) Foster care: No Household members: spouse and children Number of Children: 1 Do you need help understanding health information?: Rarely current occupation: [employer] Sexually active: Yes Do you think of yourself as: straight/heterosexual Current gender identity: female What is your relationship status?: Panel score (0-1 are the most socially isolated patients): 1 What type of physical activity do you participate in: walking and other Details: yoga daily Duration: 15-30 minutes/day Frequency: daily Seatbelt use: always Do you feel safe at home: Yes Do you feel safe in your relationship?: Yes History History 3 Para 2 Hx # Term Pregnancies 2 Multiple births 0 Hx # Pregnancies 0 Ectopic pregnancies 0 AB induced 0 Hx Number of Living Children 2 AB spontaneous 0 Past Pregnancies Del. Date GA/Weeks # Preg Succ Route Wgt Sex Labor Lgth Anesth esia Location Prov Complic Unknown 11/04/17 40 No 9 lb 7 oz Male [facility] 08/18/19 38 No 9 lb 10 oz Male [facility] 12/30/21 38 No Yes 8 lb 13 oz Male LB Delivery Date: Last Updated by: Maritza Ventura LPN Spontaneous ROM; Failed ; repeat Delivery Date: 11/04/17 Last Updated by: Paloma Short CNM IOL for back pain, herniated disc. Corona induction, Pitocin, 3 day induction. for FTP. Dilated to 7- 8 cms, FHR decellerations. Pradeep Delivery Date: 12/30/21 Last Updated by: Amanda Kumar MD Presented with SROM and contractions. Patel. DS: Data Vitals/I&O Vitals and I&O: Vital Signs Temperature 98.4 F 01/01/22 20:00 Pulse 81 01/01/22 20:00 Pulse Rhythm Regular 01/01/22 20:00 Respiratory Rate 16 01/01/22 20:00 Respiratory Depth Normal 01/01/22 20:00 Blood Pressure 116/78 01/01/22 20:00 Blood Pressure Mean 90 01/01/22 20:00 Pulse Oximetry 98 01/01/22 15:25 Oxygen Delivery Method Room Air 12/30/21 11:04 Oxygen Flow Rate 0 12/30/21 11:04 Pain Level 6 01/02/22 01:29 Intake & Output 01/01/22 01/01/22 01/02/22 11:59 23:59 11:59 Other: Urine Color Yellow
[2022-01-02] MEDS: Acetaminophen 325 MG TAB 650 MG PO (08:55)
--- NOTE | 2022-01-02 09:08 | W.PM.OBPNV1 ---
Date of service: 01/02/22 Time of Service: 09:08 Assessment and Plan Assessment and plan (1) Status post repeat low transverse section: Status: Acute Assessment and plan: Status post repeat low transverse section, postoperative day #3. Ambulating, tolerating regular diet and oral pain medication with stable vital signs. Disposition will be to home later today. [place] circumcision will be performed. All of her questions were answered. Subjective Subjective Interval history: Patient seen and examined this morning. Doing well. Pain is well controlled. Anticipating discharge home today. Working on breast-feeding. Circumcision later today. Patient's Mood: Good baby status: Doing well and Nursing well Exam Physical Exam Vital signs: Temp Pulse Resp BP Pulse Ox 98.4 F 81 16 116/78 98 01/01/22 20:00 01/01/22 20:00 01/01/22 20:00 01/01/22 20:00 01/01/22 15:25 Vital Signs Reviewed: Yes Constitutional Constitutional: no acute distress HEENT Exam HEENT Exam: Normal Neck Exam Neck Exam: Normal Respiratory Exam Respiratory Exam: Normal Cardiovascular Exam Cardiovascular Exam: Normal Abdominal Exam Comments: Soft, nontender, incision clean, dry, intact. Fundal Exam Fundus: Below Umbilicus Extremities Exam Extremity Exam: Normal; negative Calf Tenderness Psychiatric Exam Psychiatric Exam: Normal Results Hemoglobin/Hematocrit: Hgb 12.0 g/dL (11.2-15.7) 12/30/21 10:30 Hct 36.2 % (36.0-46.0) 12/30/21 10:30
[2022-01-02 13:30] VITALS: BP 143/79; PULSE 88; RESP 12; TEMP 36.5; O2SAT 97
[2022-01-02 17:00] VITALS: BP 138/80; PULSE 86; RESP 17; TEMP 36.6
== END 2022-01-02 17:30 | disposition home or self-care (01) | DRG 788 ==
LOC: OBS 12-31 11:47 → BCD 01-01 20:27
PROVIDERS: Admitting Provider Obstetrics & Gynecology; PCP Student in an Organized Health Care Education/Training Program; Visit Provider Obstetrics & Gynecology
PROC: 10D00Z1 Extraction of Products of Conception, Low, Open Approach (ICD-10-PCS; CPT 59514; principal; 2021-12-30 13:50)
DX: O42.02 Full-term premature rupture of membranes, onset of labor within 24 hours of rupture (principal); Z3A.38 38 weeks gestation of pregnancy; Z37.0 Single live birth; O34.211 Maternal care for low transverse scar from previous cesarean delivery; N85.8 Other specified noninflammatory disorders of uterus; O99.214 Obesity complicating childbirth; E66.01 Morbid (severe) obesity due to excess calories; O99.344 Other mental disorders complicating childbirth; F41.9 Anxiety disorder, unspecified; O99.824 Streptococcus B carrier state complicating childbirth; O75.89 Other specified complications of labor and delivery; M51.16 Intervertebral disc disorders with radiculopathy, lumbar region
CPT/HCPCS: 59514; 36415; 84112; 85027; 86850; 86900; 86901; 87635; 96365; 96366; 59025; J0456; J0690; J1885; J2310; J2370; J2405; J3010

== ENCOUNTER 2023-02-11 08:37 | Outpatient (REF) | payer MEDICAID, SELFPAY | END 2023-02-11 08:38 | disposition home or self-care (01) | LOC: LBN 08:37 | PROVIDERS: PCP Student in an Organized Health Care Education/Training Program; Visit Provider Family Medicine | DX: J02.9 Acute pharyngitis, unspecified (principal) | CPT/HCPCS: 87070 ==

== ENCOUNTER 2023-02-11 09:26 | Outpatient (CLI) | payer MEDICAID, SELFPAY ==
[2023-02-11 09:27] LABS: Abs Immature Grans 0.04 10^3/uL (0.0-0.06); Absolute Basophil Count 0.05 10^3/uL (0.0-0.2); Absolute Eosinophil Count 0.28 10^3/uL (0.0-0.7); Absolute Lymphocyte Count 3.62 10^3/uL (1.2-3.4); Absolute Monocyte Count 0.59 10^3/uL (0.1-0.8); Absolute Neutrophil Count 5.77 10^3/uL (1.2-6.7); Basophils % 0.5; Eosinophils % 2.7; HCT 38.8 % (36.0-46.0); HGB 12.3 g/dL (11.2-15.7); Immature Grans % 0.4; MCHC 31.7 % (32.0-36.0); MCV 82 fL (80-95); MPV 9.1 fL (8.0-11.0); Monocytes % 5.7; Neutrophils % 55.7; Platelet Count 410 10^3/uL (130-400); RBC 4.73 10^6/uL (3.93-5.22); RDW 13.3 % (11.7-14.6); RDW-SD 39.9 fL; WBC 10.35 10^3/uL (4.4-10.8)
[2023-02-11 09:35] LABS: Mono Screening Negative (Negative)
== END 2023-02-11 09:27 | disposition home or self-care (01) ==
LOC: LBO 09:26
PROVIDERS: PCP Student in an Organized Health Care Education/Training Program; Visit Provider Family Medicine
DX: J02.9 Acute pharyngitis, unspecified (principal)
CPT/HCPCS: 36415; 85025; 86308

== ENCOUNTER 2024-02-03 13:37 | Outpatient (REF) | payer MEDICAID, SELFPAY ==
--- NOTE | 2024-02-03 13:25 | PAPFT_PTH ---
PATIENT: Sherie Larios LOC: [facility] U#:[id number] AGE/SX: 29/F ROOM: RE02/03/[address]: Amanda Kumar : 1995 BED: DIS: 02/03/2024 SPEC #: [id number] RECD: 02/03/24 17:38 STATUS: BRIAN REQ #: [id number] BOBBI: 02/03/24 13:[address]: Amanda Kumar DEPT: [facility] Cytology RECD BY: Marlys Zuniga ENTERED: 02/03/24 17:38 SP TYPE: PAPFT OTHR DR: Rhoda Hidalgo DO Tissues: 1 - CX/ENDOCX FOR PAP SMEARS Procedures: PAP THIN PREP/UVM Screening HPV DNA PROBE Comments: [id number] (HPV 16 & 18/45)
[2024-02-03 14:33] LABS: Mono Screening Negative (Negative)
[2024-02-03 15:04] LABS: Hemoglobin A1C 5.1 % (<5.7)
[2024-02-04 11:18] LABS: Lyme Ab w Rflx to Lyme Confirm Negative (Negative)
[2024-02-06 19:37] LABS: Anaplasma phagocytophilum Negative (Negative); B. miyamotoi PCR Negative (Negative); Babesia divergens/MO-1 Negative (Negative); Babesia duncani Negative (Negative); Babesia microti Negative (Negative); Ehrlichia chaffeensis Negative (Negative); Ehrlichia ewingii/canis Negative (Negative); Ehrlichia muris eauclairensis Negative (Negative)
== END 2024-02-03 13:38 | disposition home or self-care (01) ==
LOC: LBN 13:37
PROVIDERS: PCP Student in an Organized Health Care Education/Training Program; Visit Provider Obstetrics & Gynecology Gynecology
DX: Z91.89 Other specified personal risk factors, not elsewhere classified (principal); R73.09 Other abnormal glucose; R53.81 Other malaise; R53.83 Other fatigue; N94.6 Dysmenorrhea, unspecified
CPT/HCPCS: 36415; 87798; 88142; 83036; 86308; 86618; 87624

== ENCOUNTER 2024-02-25 03:27 | Outpatient (CLI) | payer MEDICAID, SELFPAY ==
--- NOTE | 2024-02-25 06:45 | DI.US_ITS ---
Exam(s) US PELVIS TRANSVAGINAL EXAM: US PELVIS TRANSVAGINAL CLINICAL HISTORY: heavy painful periods,MALAISE,FATIGUE,DYSMENORRHEA. TECHNIQUE: Transabdominal and transvaginal pelvic ultrasound was performed using standard protocol. COMPARISON: US US OB JAMIN WEIGHT from 12/07/2021 FINDINGS: UTERUS: Position: Anteverted. Size: 9.6 long by 4.9 AP by 5.4 transverse cm Endometrium: 0.5 cm. Normal for patient's menstrual status. Myometrium: Unremarkable. Cervix: Unremarkable. OVARIES: Right: 3.4 x 2.5 x 1.5 cm Cyst or mass: No suspicious cystic or solid masses. Left: 3.4 x 1.7 x 2.9 cm Cyst or mass: No suspicious cystic or solid masses. DOPPLER: Color: Symmetric and uniform flow to both ovaries. CUL-DE-SAC: Free fluid: None. Other: None. IMPRESSION: 1. Normal-appearing uterus with endometrial stripe within normal limits. 2. Unremarkable bilateral ovaries. DATA REPOSITORY:
== END 2024-02-25 03:47 ==
LOC: DI 03:27
PROVIDERS: PCP Student in an Organized Health Care Education/Training Program; Visit Provider Obstetrics & Gynecology Gynecology
DX: R53.81 Other malaise (principal); R53.83 Other fatigue; N94.6 Dysmenorrhea, unspecified
CPT/HCPCS: 76830; 76856

== ENCOUNTER 2024-12-08 17:23 | Emergency (ER) | payer MEDICAID, SELFPAY ==
[2024-12-08 17:27] VITALS: BP 118/72; PULSE 78; RESP 20; TEMP 36.8; O2SAT 98
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
[2024-12-08] MEDS: Cyclobenzaprine 10 MG TAB, 3 TABS/BTL PO (19:12)
[2024-12-08] MEDS: oxyCODONE 5 MG TAB 15 MG PO (19:12)
== END 2024-12-08 19:14 | disposition home or self-care (01) ==
PROVIDERS: Emergency Provider Physician Assistant; PCP Nurse Practitioner Family
DX: M54.50 Low back pain, unspecified (principal)
CPT/HCPCS: 99283 ×2

== ENCOUNTER 2025-01-05 03:36 | Outpatient (CLI) | payer MEDICAID, SELFPAY ==
[2025-01-05 14:09] LABS: Abs Immature Grans 0.04 10^3/uL (0.0-0.06); HCT 33.2 % (36.0-46.0); HGB 11.4 g/dL (11.2-15.7); Immature Grans % 0.4 %; MCH 28.3 pg (27.0-33.0); MCHC 34.3 % (32.0-36.0); MCV 82 fL (80-95); MPV 9.5 fL (8.0-11.0); Platelet Count 297 10^3/uL (130-400); RBC 4.03 10^6/uL (3.93-5.22); RDW 13.0 % (11.7-14.6); RDW-SD 39.2 fL; WBC 10.81 10^3/uL (4.4-10.8)
[2025-01-05 15:50] LABS: Hemoglobin A1C 5.1 % (<5.7)
[2025-01-06 11:21] LABS: Rubella IgG Ab (UVM) Positive (See Note)
[2025-01-06 19:14] LABS: HIV-1/2 Ag & Ab Screen Negative (Negative)
[2025-01-06 19:18] LABS: Hepatitis C Ab w Rflx HCV PCR Negative (Negative)
[2025-01-07 17:12] LABS: Syphilis IgG w/Reflex Nonreactive (Nonreactive)
== END 2025-01-05 03:37 | disposition home or self-care (01) ==
LOC: LBO 03:36
PROVIDERS: PCP Nurse Practitioner Family; Visit Provider Advanced Practice Midwife
DX: Z34.91 Encounter for supervision of normal pregnancy, unspecified, first trimester
CPT/HCPCS: 36415; 81220; 81222; 86787; 86803; 86850; 86900; 86901; 87340; 87389; 83036; 85025; 86762; 86780

== ENCOUNTER 2025-01-05 14:20 | Outpatient (REF) | payer MEDICAID, SELFPAY ==
[2025-01-07 11:10] LABS: Chlamydia Result Negative (Negative); GC Result Negative (Negative)
== END 2025-01-05 14:21 | disposition home or self-care (01) ==
LOC: LBN 14:20
PROVIDERS: PCP Nurse Practitioner Family; Visit Provider Advanced Practice Midwife
DX: Z34.91 Encounter for supervision of normal pregnancy, unspecified, first trimester (principal)
CPT/HCPCS: 87491; 87591; 87086

== ENCOUNTER 2025-02-15 16:03 | Outpatient (CLI) | payer MEDICAID, SELFPAY ==
[2025-02-15 16:22] LABS: HCT 33.6 % (36.0-46.0); HGB 11.7 g/dL (11.2-15.7); MCH 29.4 pg (27.0-33.0); MCHC 34.8 % (32.0-36.0); MCV 84 fL (80-95); MPV 9.5 fL (8.0-11.0); Platelet Count 286 10^3/uL (130-400); RBC 3.98 10^6/uL (3.93-5.22); RDW 12.7 % (11.7-14.6); RDW-SD 38.9 fL; WBC 8.82 10^3/uL (4.4-10.8)
[2025-02-15 16:55] LABS: TSH (W/Ref FT4) 2.54 uIU/mL (0.55-4.78)
== END 2025-02-15 16:04 | disposition home or self-care (01) ==
LOC: LBO 16:04
PROVIDERS: PCP Nurse Practitioner Family; Visit Provider Advanced Practice Midwife
DX: R53.83 Other fatigue (principal); Z34.92 Encounter for supervision of normal pregnancy, unspecified, second trimester
CPT/HCPCS: 36415; 85027; 84443